=== PATIENT | male | born 1960 | race Caucasian/White ===

== ENCOUNTER 2025-01-13 01:43 | Emergency (ER) | payer OTHER, SELFPAY ==
[2025-01-13 01:45] VITALS: BP 173/76; PULSE 70; RESP 18; TEMP 36.8; O2SAT 98; BMI 18.7
--- NOTE | 2025-01-13 02:10 | RAD_ITS ---
PROCEDURE: HAND MIN 3 VIEWS 01/13/2025 REASON FOR EXAM: INJURY TECHNIQUE: Procedure Code: MASTER Modality: DX Procedure: HAND MIN 3 VIEWS COMPARISON: None FINDINGS: Bones: No definite acute fracture or dislocation. Joints: Preserved joint spaces. Soft tissues: Diffuse soft tissue swelling at the distal phalanx of the middle finger. Other: RAD/Hand Min 3 Views IMPRESSION: Soft tissue swelling at the distal phalanx of the middle finger with no acute o bvious fracture. Reading [facility]
--- NOTE | 2025-01-13 03:39 | EDS_ITS ---
HPI History of Present Illness Chief Complaint: Laceration Informant: patient Narrative Narrative: Patient is a 64-year-old male who is right-hand dominant and has past medical history of GERD. 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 He states the machine roller was still moving when it was not supposed to be and it caught the tip of his right middle finger and caused an injury. He states he took his glove off and noticed there was a laceration to the middle finger and was concerned there could be potential fracture or need for closure he was brought in for evaluation [facility] Medical History (Updated 01/13/25 @ 03:[address] Eugenio Sharma DO) GERD (gastroesophageal reflux disease) Allergy/AdvReac Type Severity Reaction Status Date / Time No Known Allergies Allergy Verified 01/13/25 01:45 Family History no significant family his Surgical History (Updated 01/13/25 @ 01:46 by Mick Paez) History of back surgery Hx of shoulder surgery Social History Smoking Status: Current every day smoker tobacco type: cigarettes ROS ROS ED Constitutional Constitutional ED: Denies chills or fever(s) ENT ENT ED: Denies sore throat Cardiovascular Cardiovascular: Denies chest pain Respiratory/Chest Respiratory/Chest: Denies cough or dyspnea Gastrointestinal Gastrointestinal: Denies abdominal pain, diarrhea, nausea or vomiting Musculoskeletal Musculoskeletal: Reports other Details: Positive right middle finger pain Integumentary Reports other Details: Positive laceration right middle finger Neurologic Neurologic: Denies headache(s), paresthesias or weakness Hematologic/Lymphatic Hematologic/Lymphatic: Denies easy bleeding or easy bruising EXAM Physical Exam Const Vital Signs: 01/13/25 01:45 Temperature 98.2 F Temperature Source Oral Pulse Rate 70 Respiratory Rate 18 Blood Pressure 173/76 H Blood Pressure Mean 108 Pulse Ox 98 Oxygen Delivery Method Room Air Positive well nourished and well developed General Appearance ED: well developed HEENT HEENT Narrative: Normocephalic atraumatic Eyes PERRL and EOMs intact bilaterally Neck supple Resp normal respiratory effort and clear to auscultation bilaterally Cardio regular rate and regular rhythm Extremity Extremity Narrative: Right upper extremity is neurovascularly intact; AIN/PIN are intact and normal Along the volar aspect of the right upper extremity at the DIP joint space of the right middle finger is a curvilinear 2.5 cm subcutaneous layer deep laceration with minimal ooze of blood and no retained foreign body. No nailbed involved. No subungual hematoma. No ligamentous or tendon injury noted. Remainder of the exam is normal Neuro oriented x3, CN's II-XII intact bilaterally and no sensory deficits noted Sensorium / Orientation: alert Motor Exam: strength 5/5 throughout Psych mental status grossly normal Skin Skin Narrative: Laceration to the volar aspect of the right middle finger as documented above MDM MDM MDM Narrative Medical decision making narrative: Patient arrived to the ER hypertensive but otherwise with stable vitals. Patient had a injury to his right middle finger and with concern for potential open fracture and x-ray was ordered. X-ray revealed no sign of fracture dislocation or retained foreign body. By physical exam there is no sign of arterial laceration or ligamentous or tendon rupture. Therefore there is no need for emergent orthopedic/hand consultation. The patient had his wound closed as documented below. Now the wound has been closed and there is no sign of open fracture or tendon laceration there is no need for further evaluation he is otherwise safe for discharge. Patient had the right middle finger cleaned with chlorhexidine. It was anesthetized with 8 mL of 2% lidocaine without epinephrine and digital block fashion. The wound was copiously irrigated with normal saline. Then thirteen 4-0 Ethilon sutures were placed in simple interrupted fashion. This brought the wound edges together well with good approximation. Patient tolerated procedure well without complication History & Record Review Discussion w/independent historian: Patient Radiography Diagnostic Testing: Clinical Impression(s) from Imaging Studies Hand X-Ray 01/13/25 02:10 IMPRESSION: Soft tissue swelling at the distal phalanx of the middle finger with no acute obvious fracture. Reading Location: [place] [id number] X-ray of the right hand as interpreted by the emergency medicine physician reveals no acute fracture dislocation or retained foreign body Discharge Plan Triage Chief Complaint: Laceration ED Provider: Eugenio Sharma Dx/Rx/DC Orders Clinical Impression: Laceration of right middle finger Instructions: ED Laceration, All Closures Primary Care Provider: Mango Antonio Referrals: [facility] [Provider Group] Mango Antonio MD [Primary Care Provider] - Activity Restrictions/Additional Instructions: Please follow-up with Workmen's Compensation or your family doctor or the ER in 7 to 10 days for suture removal. Please continue to wash the area with soap and water to prevent secondary infection and allow roughly 4 hours of air exposure today to help with healing Print Language: Welsh Disposition Disposition: Home, Self Care
[2025-01-13] MEDS: Lidocaine 2% (20 ml mdv) 20 ML Vial INFILT (03:57)
[2025-01-13 03:58] VITALS: BP 158/70; PULSE 72; RESP 18; TEMP 36.8; O2SAT 96
== END 2025-01-13 04:00 | disposition home or self-care (01) ==
PROVIDERS: Emergency Provider Emergency Medicine; PCP Family Medicine; Visit Provider Emergency Medicine
DX: S61.212A Laceration without foreign body of right middle finger without damage to nail, initial encounter (principal); W31.89XA Contact with other specified machinery, initial encounter; Y99.0 Civilian activity done for income or pay; K21.9 Gastro-esophageal reflux disease without esophagitis; F17.210 Nicotine dependence, cigarettes, uncomplicated
CPT/HCPCS: 12001; 73130; 99282

== ENCOUNTER 2025-01-17 15:55 | Emergency (ER) | payer OTHER, SELFPAY ==
[2025-01-17 15:56] VITALS: BP 141/75; PULSE 70; RESP 18; TEMP 36.3; O2SAT 97; BMI 18.9
--- OUTSIDE RECORDS SUMMARY | 2025-01-17 18:06 | XMS RPT_ITS | CCD ---
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 Name Role Phone Krishan Antonio Unavailable [phone] Ulises Griffith Unavailable Unavailable Ulises Griffith Unavailable Unavailable KIMANI MCDONALD, DR RILEY Attending Unavail able KIMANI MCDONALD, DR RILEY Consulting Unavail able KIMANI MCDONALD, DR RILEY Admitting Unavail able HOLDEN MCDONALD, FEI [place] [facility] Unavailab le Joann [phone], Gurinder [phone] Co nsulting Unavailable MARCELLA MCDONALD, STACY Akhtar Consulting Unavailabl e JESSICA FRAGA CRNA Consulting Unavail able HOLDEN MCDONALD, FEI [place] Consulting Unavailab le FurnUlises duran Unavailable Unavailable Unavailable Krishan Antonio Referring Unavailab le FurnessUlises Primary Care Krishan Vu Attending Unavailab le Wood, Ms. Stella Henry Attending Unav ailable Wood, Ms. Stella Henry Referring Unav ailable Ulises Griffith Primary Care AdalivaKrishan Fernandes Attending Unavailab le StenKrishan rincon Referring Unavailab le FurnessUlises Primary Care Unavai Krishan Arambula MD Primary Care Provider Krishan Antonio MD Unavailable KRISHAN ANTONIO Primary Care Unavailab le KRISHAN ANTONIO Referring Unavailab le DETRICHPATRICK Attending Unavailable STENCELKRISHAN Admitting Unavailab le DETRPATRICK RASCON Attending Unavailable STENKRISHAN RINCON Primary Care Unavailab Giovanny Rey Attending Unavailable Furness, Dr. Ulises Mills Primary Care Un available Furness, Dr. Ulises Mills Referring Un available Furness Ulises MCDONALD Primary Care Provider ULISES GRIFFITH Attending Unavailable NACHO, ULISES Jimenez Primary Care Unavailable ULISES GRIFFITH Attending Unavailable ULISES GRIFFITH Primary Care Unavailable Dr. Eugenio Sharma DO Emergency Provider Dr. Krishan Antonio MD Primary Care Provider Eugenio Sharma Attending Unavailable Krishan Antonio Primary Care Unavailable Medications Current Medications Medication Drug Class(es) Dates Sig (Normalized) Sig (Original) cephalexin 500 mg oral capsule (1 source) Cephalosporin Antibacterial Start: 02-17-2021 take 1 capsule by mouth four times daily Cephalexin 500 MG Oral Capsule TAKE 1 CAPSULE 4 TIMES DAILY UNTIL GONE. Quantity: 28 Refills: 2 Ordered: 17-Feb-2021 Krishan Antonio MD Start : 17-Feb-2021 Active Start: 02-17-2021 [facility] Cephalexin 500 MG Oral Capsule TAKE 1 CAPSULE 4 TIMES DAILY UNTIL GONE. Quantity: 28 Refills: 2 Ordered: 17-Feb-2021 Krishan Antonio MD Start : 17-Feb-2021 Active pantoprazole 40 mg delayed release oral tablet (16 sources) Proton Pump Inhibitor Start: 07-10-2023 End: 06-18-2025 take 1 tablet by mouth once daily pantoprazole (ProtoNix) 40 mg EC tablet Indications: Routine general medical examination at a health care facility Take 1 tablet (40 mg) by mouth once daily. 90 tablet 3 06/18/2024 06/18/2025 Active Start: 09-05-2019 take 1 tablet by [facility] once daily Pantoprazole Sodium 40 MG Oral Tablet Delayed Release TAKE 1 TABLET DAILY. Quantity: 90 Refills: 3 Ordered: 11-Aug-2021 Krishan Antonio MD Start : 05-Sep-2019 Active take 40 mg by mouth once daily P ANTOPRAZOLE SODIUM (PANTOPRAZOLE ORAL) Take 40 mg by mouth daily . 0 Active take 40 mg by mouth once daily P ANTOPRAZOLE SODIUM (PANTOPRAZOLE ORAL) Take 40 mg by mouth daily . Active sildenafil 100 mg oral tablet (14 sources) Phosphodiesterase 5 Inhibitor Start: 07-10-2023 End: 06-18-2025 take 1 tablet by mouth in the morning sildenafil (Viagra) 100 mg tablet Indications: Routine general medical examination at a health care facility Take 1 tablet (100 mg) by mouth early in the morning.. 90 tablet 3 06/18/2024 06/18/2025 Active Start: 08-07-2018 sildenafil ( AGRA) 100 MG tablet Completed/Discontinued Medications Medication Drug Class(es) Dates Sig (Normalized) Sig (Original) dexamethasone (DECADRON) 1 mL, triamcinolone acetonide (KENALOG-40) 40 mg/mL 1 mL (2 sources) Start: 06-17-2018 End: 06-17-2018 dexamethasone (DECADRON) 1 mL, triamcinolone acetonide (KENALOG-40) 40 mg/mL 1 mL Start: 06-15-2018 End: 06-17-2018 dexamethasone (DECADRON) 1 m L, triamcinolone acetonide (KENALOG-40) 40 mg/mL 1 mL 24 hr diclofenac sodium 100 mg extended release oral tablet (2 sources) Nonsteroidal Anti-inflammatory Drug Start: 08-26-2021 End: 10-20-2021 take 1 tablet by mouth once daily Diclofenac Sodium ER 100 MG Oral Tablet Extended Release 24 Hour Take 1 tablet daily Quantity: 30 Refills: 11 Ordered: 26-Aug-2021 Krishan Antonio MD Start : 26-Aug-2021 End : 20-Oct-2021 Complete gabapentin 600 mg oral tablet (1 source) Anti-epileptic Agent End: 02-19-2017 take 1 tablet by mouth three times daily gabapentin (NEURONTIN) 600 MG tablet Take 600 mg by mouth 3 (three) times a day Takes 1 or 2 tabs TID . 02/19/2017 Discontinued rizatriptan 10 mg oral tablet (2 sources) Serotonin-1b and Serotonin-1d Receptor Agonist Start: 10-20-2021 take 1 tablet by mouth every two hours as needed, then take 3 tablets by mouth every twenty-four hours as needed Rizatriptan Benzoate 10 MG Oral Tablet TAKE 1 TABLET AT ONSET OF HEADACHE. MAY REPEAT EVERY 2 HOURS NEEDED. MAXIMUM 3 TABLETS IN 24 HOURS. Quantity: 9 Refills: 3 Ordered: 20-Oct-2021 Stella George Start : 20-Oct-2021 Active triamcinolone acetonide 40 mg/ml injectable suspension (4 sources) Corticosteroid Start: 02-19-2017 End: 02-19-2017 triamcinolone acetonide (KENALOG-40) injection 20 mg Start: 02-19-2017 End: 02-19-2017 triamcinolone acetonide (JAM ALOG-40) injection 20 mg Start: 02-19-2017 End: 02-19-2017 triamcinolone acetonide (JAM ALOG-40) injection 20 mg 20 mg, Intra-articular, Once, 02/19/17 at 1900, For 1 dose, [facility] 5993-2853-33 Given 02/19/2017 18:11 EDT 20 mg Start: 02-19-2017 End: 02-19-2017 triamcinolone acetonide (JAM ALOG-40) injection 20 mg 20 mg, Intra-articular, Once, 02/19/17 at 1900, For 1 dose, [facility] 5490-7341-08 Given 02/19/2017 18:10 EDT 20 mg 24 hr verapamil hydrochloride 240 mg extended release oral capsule (5 sources) Calcium Channel Pati Start: 10-20-2021 take 1 capsule by mouth once daily in the morning Verapamil HCl ER 240 MG Oral Capsule Extended Release 24 Hour TAKE 1 CAPSULE EVERY MORNING DAILY. Quantity: 30 Refills: 3 Ordered: 20-Oct-2021 Stella George Start : 20-Oct-2021 Active Start: 08-26-2021 take 1 tablet by mehran th once daily Verapamil HCl ER 180 MG Oral Tablet Extended Release TAKE 1 TABLET DAILY DIRECTED. Quantity: 30 Refills: 11 Ordered: 26-Aug-2021 Krishan Antonio MD Start : 26-Aug-2021 Active Problems Active Problems Problem Classification Problem Date Documented Date Episodic/Chronic Esophageal disorders (7 sources) Gastroesophageal reflux disease; Translations: [Esophageal reflux] Onset: 07-10-2023 07-10-2023 Chronic Headache; including migraine (4 sources) Headache; Translations: [Headache] Episodic Open wounds of extremities (1 source) Laceration of right middle finger; Translations: [Laceration without foreign body of right middle finger without damage to nail, initial encounter] 01-13-2025 Episodic Other connective tissue disease (3 sources) Impingement syndrome of left shoulder; Translations: [Impingement syndrome of left shoulder] Onset: 06-15-2018 06-15-2018 Episodic Other connective tissue disease (1 source) Full thickness rotator cuff tear; Translations: [Complete tear of left rotator cuff] Episodic Other male genital disorders (1 source) Impotence; Translations: [Erectile dysfunction] Chronic Other male genital disorders (6 sources) Male erectile dysfunction, unspecified; Translations: [Erectile dysfunction] Onset: 07-10-2023 07-10-2023 Chronic Other non-traumatic joint disorders (12 sources) Shoulder pain; Translations: [Pain in joint, shoulder region] Episodic Other skin disorders (5 sources) Epidermoid cyst of skin; Translations: [Sebaceous cyst] Episodic Other skin disorders (2 sources) Lesion of scalp; Translations: [Unspecified disorder of skin and subcutaneous tissue] Episodic Other skin disorders (4 sources) Cyst of scalp; Translations: [Follicular cyst of the skin and subcutaneous tissue, unspecified] Onset: 05-10-2022 Episodic Other skin disorders (2 sources) Follicular cyst of the skin and subcutaneous tissue, unspecified; Translations: [Follicular cyst of the skin and subcutaneous tissue, unspecified] Onset: 05-10-2022 Episodic Residual codes; unclassified (1 source) Body mass index 20-24 - normal; Translations: [Body Mass Index between 19-24, adult] Episodic Spondylosis; intervertebral disc disorders; other back problems (14 sources) Prolapsed lumbar intervertebral disc; Translations: [Displacement of lumbar intervertebral disc without myelopathy] Onset: 02-18-2016 02-18-2016 Chronic Sprains and strains (2 sources) Strain of other muscles, fascia and tendons at shoulder and upper arm level, left arm, initial encounter; Translations: [STRN OTH MSC F TEND SHLDR UA LA INT] Onset: 11-04-2019 Episodic Unclassified (2 sources) Procedure Onset: 05-24-2022 Past or Other Problems Problem Classification Problem Date Documented Da te Episodic/Chronic Other connective tissue disease (1 source) Soft tissue lesion of shoulder region Episodic Other connective tissue disease (7 sources) Impingement syndrome of right shoulder; Translations: [Bilateral impingement syndrome of shoulders] Onset: 06-15-2018 09-05-2018 Episodic Other screening for suspected conditions (not mental disorders or infectious disease) (10 sources) Patient encounter status; Translations: [Special screening for malignant neoplasms of colon] Onset: 09-20-2021 Episodic Unclassified (1 source) Tear of right rotator cuff, unspecified tear extent Results Test Name Value Interpretation Reference Range Facility Emergency Department Summary on 01-13-2025 Emergency Department Summary [facility] Medical Records Department [address] [place] [address] Emergency Department Summary 01/13/25 MR#: [id number] Acct: [id number] Name: EDILBERTO HUMPHREYS Rep #: [id number] : 1960 64 From: Eugenio Sharma DO PCP: Dr. Krishan Antonio MD Status:REG ER Location: ED HPI History of Present Illness Chief Complaint: Laceration Informant: patient Narrative Narrative: Patient is a 64-year-old male who is right-hand dominant and has past medical history of GERD. 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 He states the machine roller was still moving when it was not supposed to be and it caught the tip of his right middle finger and caused an injury. He states he took his glove off and noticed there was a laceration to the middle finger and was concerned there could be potential fracture or need for closure he was brought in for evaluation [facility] Medical History (Updated 01/13/25 @ 03:[address] Eugenio Sharma DO) GERD (gastroesophageal reflux disease) Allergy/AdvReac Type Severity Reaction Status Date / Time No Known Allergies Allergy Verified 01/13/25 01:45 Family History no significant family his Surgical History (Updated 01/13/25 @ 01:46 by Mick Paez) History of back surgery Hx of shoulder surgery Social History Smoking Status: Current every day smoker tobacco type: cigarettes ROS ROS ED Constitutional Constitutional ED: Denies chills or fever(s) ENT ENT ED: Denies sore throat Cardiovascular Cardiovascular: Denies chest pain Respiratory/Chest Respiratory/Chest: Denies cough or dyspnea Gastrointestinal Gastrointestinal: Denies abdominal pain, diarrhea, nausea or vomiting Musculoskeletal Musculoskeletal: Reports other Details: Positive right middle finger pain Integumentary Reports other Details: Positive laceration right middle finger Neurologic Neurologic: Denies headache(s), paresthesias or weakness Hematologic/Lymphatic Hematologic/Lymphatic : Denies easy bleeding or easy bruising EXAM Physical Exam Const Vital Signs: 01/13/25 01:45 Temperature 98.2 F Temperature Source Oral Pulse Rate 70 Respiratory Rate 18 Blood Pressure 173/76 H Blood Pressure Mean 108 Pulse Ox 98 Oxygen Delivery Method Room Air Positive well nourished and well developed General Appearance ED: well developed HEENT HEENT Narrative: Normocephalic atraumatic Eyes PERRL and EOMs intact bilaterally Neck supple Resp normal respiratory effort and clear to auscultation bilaterally Cardio regular rate and regular rhythm Extremity Extremity Narrative: Right upper extremity is neurovascularly intact; AIN/PIN are intact and normal Along the volar aspect of the right upper extremity at the DIP joint space of the right middle finger is a curvilinear 2.5 cm subcutaneous layer deep laceration with minimal ooze of blood and no retained foreign body. No nailbed involved. No subungual hematoma. No ligamentous or tendon injury noted. Remainder of the exam is normal Neuro oriented x3, CN's II-XII intact bilaterally and no sensory deficits noted Sensorium / Orientation: alert Motor Exam: strength 5/5 throughout Psych mental status grossly normal Skin Skin Narrative: Laceration to the volar aspect of the right middle finger as documented above MDM MDM MDM Narrative Medical decision making narrative: Patient arrived to the ER hypertensive but otherwise with stable vitals. Patient had a injury to his right middle finger and with concern for potential open fracture and x-ray was ordered. X-ray revealed no sign of fracture dislocation or retained foreign body. By physical exam there is no sign of arterial laceration or ligamentous or tendon rupture. Therefore there is no need for emergent orthopedic/hand consultation. The patient had his wound closed as documented below. Now the wound has been closed and there is no sign of open fracture or tendon laceration there is no need for further evaluation he is otherwise safe for discharge. Patient had the right middle finger cleaned with chlorhexidine. It was anesthetized with 8 mL of 2% lidocaine without epinephrine and digital block fashion. The wound was copiously irrigated with normal saline. Then thirteen 4-0 Ethilon sutures were placed in simple interrupted fashion. This brought the wound edges together well with good approximation. Patient tolerated procedure well without complication History Record Review Discussion w/independent historian: Patient Radiography Diagnostic Testing: Clinical Impression(s) from Imaging Studies Hand X-Ray 01/13/25 02:10 IMPRESSION: Soft tissue swelling at the distal phalanx of the middle finger with no acute obvious fracture. (more content not included)... Normal [facility] Hand Min 3 Viewson 5 Hand Min 3 Views [facility] Imaging Services [address] [place] [address] Hand Min 3 Views MR#: [id number] Acct: [id number] Name: EDILBERTO HUMPHREYS Rep #: [id number] : 1960 M 64 From: Zeeshan kerr MD PCP: Dr. Krishan Antonio MD Status: REG ER Study: Hand Min 3 Views Date of Exam: 01/13/25 Exam# [id number] Ordering Dr: Eugenio Sharma DO PROCEDURE: HAND MIN 3 VIEWS 01/13/2025 REASON FOR EXAM: INJURY TECHNIQUE: Procedure Code: MASTER Modality: DX Procedure: HAND MIN 3 VIEWS COMPARISON: None FINDINGS: Bones: No definite acute fracture or dislocation. Joints: Preserved joint spaces. Soft tissues: Diffuse soft tissue swelling at the distal phalanx of the middle finger. Other: RAD/Hand Min 3 Views IMPRESSION: Soft tissue swelling at the distal phalanx of the middle finger with no acute obvious fracture. Reading Location: [place] [address] CC: Dr. Krishan Antonio MD; Eugenio Sharma DO Safety Attendant: Signed Normal [facility] Office Visit (Primary Care T xt/Forms)on 04-26-2022 Follow-up visit Diagnoses/Problems Assessed Epidermal cyst (706.2) (L72.0) Skin lesion of scalp (709.9) (L98.9) Body mass index (BMI) of 20.0 to 20.9 in adult (V85.1) (Z68.20) Orders Epidermal cyst General Surgery Referral Evaluation and Treatment Evaluate AND Treat cyst on right side of scalp Status: Hold For - Scheduling Requested for: [id number] Patient Discussion/Summary wound care for cryp reviewed prn fu if recurs refer for excision of cyst Chief Complaint CHECK SPOT ON RIGHT SIDE OF HEAD X 2 WKS. NO LONGER TAKING VERAPAMIL. WAS NOT HELPING History of Present Illness scalp lesion right side incresed vertex AK returned LN2 to vertex 20 sec x 2 cycles to 2 mm lesion which froze to 8 mm lesion with >2 mm margin Active Problems Problems Acute pain of left shoulder (719.41) (M25.512) Acute pain of right shoulder (719.41) (M25.511) Chronic nonintractable headache, unspecified headache type (784.0) (R51.9,G89.29) Epidermal cyst (706.2) (L72.0) Erectile dysfunction (607.84) (N52.9) GERD (gastroesophageal reflux disease) (530.81) (K21.9) Herniated nucleus pulposus, L3-4 (722.10) (M51.26) Screening for colon cancer (V76.51) (Z12.11) Skin lesion of scalp (709.9) (L98.9) Surgical History Problems History of Colonoscopy History of Lumbar discectomy Family History Mother Family history of diabetes mellitus (V18.0) (Z83.3) Family history of hypertension (V17.49) (Z82.49) Father No pertinent family history Brother Family history of gastroesophageal reflux disease (V18.59) (Z83.79) Family history of S/P CABG (coronary artery bypass graft) Social History Problems Consumes alcohol (V49.89) (Z78.9) Current smoker (305.1) (F17.200) Never chewed tobacco (V49.89) (Z78.9) No advance directives (V49.89) (Z78.9) Current Meds Medication NameInstruction Pantoprazole Sodium 40 MG Oral Tablet Delayed ReleaseTAKE 1 TABLET DAILY. Rizatriptan Benzoate 10 MG Oral TabletTAKE 1 TABLET AT ONSET OF HEADACHE. MAY REPEAT EVERY 2 HOURS NEEDED. MAXIMUM 3 TABLETS IN 24 HOURS. Sildenafil Citrate 100 MG Oral Tablettake 1 tablet by mouth once daily Verapamil HCl ER 180 MG Oral Tablet Extended ReleaseTAKE 1 TABLET DAILY DIRECTED. Verapamil HCl ER 240 MG Oral Capsule Extended Release 24 HourTAKE 1 CAPSULE EVERY MORNING DAILY. Allergies Medication No Known Drug Allergies Vitals Vital Signs Recorded: [id number] 07:58AM Heart Rate: 66 Systolic: 124 Diastolic: 76 Height: 6 ft 4.5 in Weight: 173 lb 1 oz BMI Calculated: 20.79 kg/m2 BSA Calculated: 2.09 Tobacco Use: a) Yes Patient encouraged to stop using tobacco products: Yes Falls Screening (Age 18+): a) No falls within the last year O2 Saturation: 99 Physical Exam 1 cm cyst on right parietal scalp and 2-8 mm AK vertex Signatures Electronically signed by : Krishan Antonio MD; Apr 26 2022 8:25AM EST (Author) Normal [employer] Tobacco Screening.on 022 Fall risk assessment a) No falls within the last year [employer] [facility] Work Phone: Tobacco use status [facility] a) Yes [employer] [facility] Work Phone: Tobacco Screening. Yes [employer] [facility] Work Phone: Office Visit (Primary Care T xt/Forms)on 10-20-2021 Follow-up visit Diagnoses/Problems Assessed Chronic nonintractable headache, unspecified headache type (784.0) (R51.9,G89.29) Skin lesion of scalp (709.9) (L98.9) Orders Chronic nonintractable headache, unspecified headache type Start: Rizatriptan Benzoate 10 MG Oral Tablet; TAKE 1 TABLET AT ONSET OF HEADACHE. MAY REPEAT EVERY 2 HOURS NEEDED. MAXIMUM 3 TABLETS IN 24 HOURS Start: Verapamil HCl ER 240 MG Oral Capsule Extended Release 24 Hour; TAKE 1 CAPSULE EVERY MORNING DAILY Provider Impressions Provider Impressions Free Text Note Form: Maxalt 10 mg by mouth at onset of headache may repeat in 2 hours. Do not take more than 3 pills in 24 hours. For any new medications that were prescribed today, the patient was educated about their indications for use, administration, frequency and potential side effects of the medication. Increase verapamil to 240 mg by mouth daily RTC as needed Time Code: 1. Preparation for patient's visit (reviewing chart, current medical record, outside health provider records, previous history, exam, test, procedure, and medications) 2. Eunj-fp-Uzdl encounter obtaining history from patient/family/caregi vers; performing evaluation and exam; ordering tests or procedures; referring and communicating with other health care providers; counseling and education of the patient/family/caregi vers; independently interpreting results (tests, labs, procedures, imaging) and communicating and explaining results to the patient/family/caregi vers 3. Coordination of care; preparing and printing discharge instructions and any educational material for the patient/family/caregi vers. Documenting clinical information into the electronic medical record 4. Reviewing OARRS as needed MDM: 1) complexity: more than 1 stable chronic condition addressed or 1 acute illness addressed. 2) Data: tests interpreted and/or ordered, took independent history or records reviewed. 3) Risk: moderate risk due to nature of medical conditions/comorbidit y or medications ordered or surgical or procedural referral Chief Complaint SPOT ON TOP OF HEAD X 1 MO, ALSO STILL HAVING RODRIGUES History of Present Illness Edilberto comes to the office today to check a spot on top of head x1MO. only tender when he picks at it. Denies bleeding or drainage from the lesion. Mildly itchy. He will pick at it and it goes away then will return later. History of sun exposure in his younger years. chronic RODRIGUES's; previously seen per neurology. RODRIGUES better for several yrs then gradually returned gurmeet. noting them in morning hrs. + scotomas. RODRIGUES presentation the same as they have been for years. Complains of morning headache to the top /occipital region of the head and lasts all day. He is able to work through his headaches. He has no history of CV disease. + Mother with migraines. Denies nausea, vomiting, dizziness, or lightheadedness. Relieving factors: Sleep. aggravating factors: Coughing or sneezing. Headaches sometimes improved with caffeine and ibuprofen use. Review of Systems Constitutional: no fever and no chills. Eyes: no eyesight problems . + Visual scotomas. Neurological: headache, but no dizziness, no fainting and no speech difficulty. Psychiatric: no feelings of anxiety. Active Problems Problems Acute pain of left shoulder (719.41) (M25.512) Acute pain of right shoulder (719.41) (M25.511) Chronic nonintractable headache, unspecified headache type (784.0) (R51.9,G89.29) Epidermal cyst (706.2) (L72.0) Erectile dysfunction (607.84) (N52.9) GERD (gastroesophageal reflux disease) (530.81) (K21.9) Herniated nucleus pulposus, L3-4 (722.10) (M51.26) Screening for colon cancer (V76.51) (Z12.11) Surgical History Problems History of Colonoscopy History of Lumbar discectomy Family History Mother Family history of diabetes mellitus (V18.0) (Z83.3) Family history of hypertension (V17.49) (Z82.49) Father No pertinent family history Brother Family history of gastroesophageal reflux disease (V18.59) (Z83.79) Family history of S/P CABG (coronary artery bypass graft) Social History Problems Consumes alcohol (V49.89) (Z72.89) Current smoker (305.1) (F17.200) Never chewed tobacco (V49.89) (Z78.9) No advance directives (V49.89) (Z78.9) Current Meds Medication NameInstruction Pantoprazole Sodium 40 MG Oral Tablet Delayed ReleaseTAKE 1 TABLET DAILY. Sildenafil Citrate 100 MG Oral Tablettake 1 tablet by mouth once daily Verapamil HCl ER 180 MG Oral Tablet Extended ReleaseTAKE 1 TABLET DAILY DIRECTED. Allergies Medication No Known Drug Allergies Vitals Vital Signs Recorded: 20Oct2021 09:22AM Heart Rate: 60 Systolic: 162 Diastolic: 86 Height: 6 ft 4.5 in Weight: 169 lb 5 oz BMI Calculated: 20.34 kg/m2 BSA Calculated: 2.07 Tobacco Use: a) Yes Patient encouraged to stop using tobacco products: Yes Fall Screening: a) No falls within the last year O2 Saturation: 98 Physical Exam General: Alert and oriented. Ambulation statu (more content not included)... Normal [facility] Tobacco Screening.on 022 Fall risk assessment a) No falls within the last year [employer] [facility] Work Phone: Tobacco use status [facility] a) Yes [employer] [facility] Work Phone: Tobacco Screening. Yes [employer] [facility] [facility] Work Phone: Colonoscopyon 09-20-2021 Colonoscopy PATIENTNAME Patient Name: Edilberto Humphreys EXAMDATE Procedure Date: 09/20/2021 9:35 AM PATIENTID PATIENTACCOUNTNUM PATIENTDOB Date of : 1960 ADMITTYPE Admit Type: Outpatient PATIENTROOM Site: [facility] RM 1 ETHNICITY Ethnicity: Not or RACE Race: White PROVDR Attending MD: Giovanny Durham DO ENDOPROCEDURENREYNALDO Procedure: Colonoscopy INDICATION Indications: Screening for colorectal malignant neoplasm PRIMARYPROVIDER Providers: Giovanny Durham DO (Doctor), Damaris Weston RN (Nurse), Bertha Anderson RN (Nurse) EDREFPROVIDER Referring: Ulises Griffith MD CURRENT_MEDS Medicines: Midazolam 10 mg IV, Meperidine 50 mg IV, Diphenhydramine 50 mg IV COMPLIC Complications: No immediate complications. ENDOPROCEDURETEXT Procedure: Pre-Anesthesia Assessment: - Prior to the procedure, a History and Physical was performed, and patient medications and allergies were reviewed. The patient is competent. The risks and benefits of the procedure and the sedation options and risks were discussed with the patient. All questions were answered and informed consent was obtained. Patient identification and proposed procedure were verified by the physician in the pre-procedure area. Mental Status Examination: alert and oriented. Airway Examination: normal oropharyngeal airway and neck mobility. Respiratory Examination: clear to auscultation. CV Examination: normal. Prophylactic Antibiotics: The patient does not require prophylactic antibiotics. Prior Anticoagulants: The patient has taken no anticoagulant or antiplatelet agents. ASA Grade Assessment: II - A patient with mild systemic disease. After reviewing the risks and benefits, the patient was deemed in satisfactory condition to undergo the procedure. The anesthesia plan was to use moderate sedation / analgesia (conscious sedation). Immediately prior to administration of medications, the patient was re-assessed for adequacy to receive sedatives. The heart rate, respiratory rate, oxygen saturations, blood pressure, adequacy of pulmonary ventilation, and response to care were monitored throughout the procedure. The physical status of the patient was re-assessed after the procedure. After I obtained informed consent, the scope was passed under direct vision. Throughout the procedure, the patient's blood pressure, pulse, and oxygen saturations were monitored continuously. The pediatric colonoscope was introduced through the anus and advanced to the terminal ileum, with identification of the appendiceal orifice and IC valve. The colonoscopy was performed without difficulty. The patient tolerated the procedure well. The quality of the bowel preparation was excellent. The terminal ileum, ileocecal valve, appendiceal orifice, and rectum were photographed. FINDING Findings: The perianal and digital rectal examinations were normal. Pertinent negatives include normal sphincter tone and no palpable rectal lesions. The terminal ileum appeared normal. The entire examined colon appeared normal on direct and retroflexion views. SEDATION Moderate Sedation: Moderate (conscious) sedation was administered by the endoscopy nurse and supervised by the endoscopist. The following parameters were monitored: oxygen saturation, heart rate, blood pressure, and response to care. Total physician intraservice time was 22 minutes. EBL Estimated Blood Loss: Estimated blood loss: none. IMPRESS Impression: - The examined portion of the ileum was normal. - The entire examined colon is normal on direct and retroflexion views. - No specimens collected. ENDORECOMMENDATION Recommendation: - Patient has a contact number available for emergencies. The signs and symptoms of potential delayed complications were discussed with the patient. Return to normal activities tomorrow. Written discharge instructions were provided to the patient. - Resume previous diet. - Continue present medications. - Repeat colonoscopy in 10 years for screening purposes. - Return to referring physician as previously scheduled. CPT_CODES Procedure Code(s): --- Professional --- 59097, Colonoscopy, flexible; diagnostic, including collection of specimen(s) by brushing or washing, when performed (separate procedure) G0500, Moderate sedation services provided by the same physician or other qualified health director of career services performing a gastrointestinal endoscopic service that sedation supports, requiring the presence of an independent trained observer to assist in the monitoring of the patient's level of consciousness and physiological status; initial 15 minutes of intra-service time; patient age 5 years or older (additional time may be reported with 17814, as appropriate) ICD_CODES Diagnosis Code(s): --- Professional --- Z12.11, Encounter (more content not included)... Normal [facility] No Panel Informationon 09-20 [email or web address] [email or web address] [facility] Work Phone: Office Visit (Primary Care T xt/Forms)on 08-11-2021 Follow-up visit Diagnoses/Problems Assessed Screening for colon cancer (V76.51) (Z12.11) Chronic nonintractable headache, unspecified headache type (784.0) (R51.9,G89.29) Orders Erectile dysfunction Renew: Sildenafil Citrate 100 MG Oral Tablet; take 1 tablet by mouth once daily GERD (gastroesophageal reflux disease) Renew: Pantoprazole Sodium 40 MG Oral Tablet Delayed Release; TAKE 1 TABLET DAILY Screening for colon cancer Gastroenterology Referral Evaluation and Treatment Evaluate AND Treat Status: Hold For - Scheduling,Retrospect chiqui By Protocol Authorization Requested for: 11Aug2021 Unlinked Temporarily Stop: Influenza, seasonal, injectable Patient Discussion/Summary will revew old recs before eval and tx This patient encounter is quite complex due to the seriousness. High-level decision making was required to formulate the differential diagnosis, assessment, and plan. 1 1 Amended By: Krishan Antonio; Aug 11 2021 3:00 PM ESTChief Complaint CONSTANT RODRIGUES X 2 MO History of Present Illness had rodrigues 4-5 yrs ago seeingf specialists , was on mega, then stopped all meds and was ok after a co weeks. for last 2 months ok at hs and when first up ans rodrigues begins and progressive over course of day and takes meds hat ct and mri scans at that time occipital, worsee woth cough or sneeze. ok in am, onset after up and hour. Review of Systems General-no fatigue weight to within 10 pounds ENT no problems with vision swallowing Cardiac no chest pains palpitations change in exercise tolerance or capacity Pulmonary no cough shortness of breath GI no heartburn or abdominal pain Musculoskeletal no joint pains Active Problems Problems Acute pain of left shoulder (719.41) (M25.512) Acute pain of right shoulder (719.41) (M25.511) Epidermal cyst (706.2) (L72.0) Erectile dysfunction (607.84) (N52.9) GERD (gastroesophageal reflux disease) (530.81) (K21.9) Herniated nucleus pulposus, L3-4 (722.10) (M51.26) Surgical History Problems History of Colonoscopy History of Lumbar discectomy Family History Mother Family history of diabetes mellitus (V18.0) (Z83.3) Family history of hypertension (V17.49) (Z82.49) Father No pertinent family history Brother Family history of gastroesophageal reflux disease (V18.59) (Z83.79) Family history of S/P CABG (coronary artery bypass graft) Social History Problems Consumes alcohol (V49.89) (Z72.89) Current smoker (305.1) (F17.200) Never chewed tobacco (V49.89) (Z78.9) No advance directives (V49.89) (Z78.9) Current Meds Medication NameInstruction Pantoprazole Sodium 40 MG Oral Tablet Delayed ReleaseTAKE 1 TABLET DAILY. Sildenafil Citrate 100 MG Oral Tablettake 1 tablet by mouth once daily Allergies Medication No Known Drug Allergies Vitals Vital Signs Recorded: 11Aug2021 02:22PM Heart Rate: 67 Systolic: 144 Diastolic: 78 Height: 6 ft 4.5 in Weight: 172 lb 2 oz BMI Calculated: 20.68 kg/m2 BSA Calculated: 2.09 Tobacco Use: a) Yes Patient encouraged to stop using tobacco products: Yes PHQ-2 #1. Over the last 2 weeks have you felt down, depressed or hopeless? (If yes, answer PHQ-9 below): No PHQ-2 #2. Over the last 2 weeks have you felt little interest or pleasure in doing things? (If yes, answer PHQ-9 below): No Fall Screening: a) No falls within the last year O2 Saturation: 98 Physical Exam General: Alert, No acute distress. Appears stated age Eye: Pupils are equal, round and reactive to light, Extraocular movements are intact, Normal conjunctiva. Neck: Supple, Non-tender, No carotid bruit, No jugular venous distention, No lymphadenopathy, No thyromegaly. Respiratory: Lungs are clear to auscultation, Respirations are non-labored, Breath sounds are equal. Cardiovascular: Normal rate, Regular rhythm, No murmur. Gastrointestinal: Soft, Non-tender, No organomegaly. No solid or pulsatile mass Integumentary: Warm, Dry. No concerning lesions on exposed areas Neurologic: Alert, Oriented. Gross and fine motor intact, CN 2-12 intact Psychiatric: Cooperative, Appropriate mood AND affect. Signatures Electronically signed by : Krishan Antonio MD; Aug 11 2021 2:59PM EST (Author) Electronically signed by : Krishan Antonio MD; Aug 11 2021 3:01PM EST (Author) Normal [facility] Tobacco Screening.on 022 Adult depression screening assessment No [facility] [facility] Work Phone: Fall risk assessment a) No falls within the last year [facility] [facility] Work Phone: Tobacco use status [facility] a) Yes [employer] [facility] Work Phone: Tobacco Screening. Yes [facility] Work Phone: Tobacco Screening.on 021 Fall risk assessment a) No falls within the last year [employer] [facility] Work Phone: Tobacco use status [facility] a) Yes [employer] [facility] Work Phone: Tobacco Screening. Yes [employer] [facility] Work Phone: MRI Shoulder w/o Contrast [place] 09-12-2018 MRI Shoulder w/o Contrast Left Exam Date/Time: 09/12/2018 10:10 EDT Reason for Exam: IMPINGEMENT SYNDROME OF LEFT SHOULDER M 75.42 Report STUDY: MRI of the left shoulder without intravenous contrast date09/12/2018. INDICATION: Shoulder pain. Assess for rotator cuff tear. Impingement syndrome. COMPARISON: None. ACCESSION NUMBER(S): [id number] ORDERING CLINICIAN: Miracle Whitaker TECHNIQUE: Multiplanar multisequence MRI of the left shoulder was performed without intra-articular or intravenous contrast. FINDINGS: MUSCLES AND TENDONS: There is a near complete retracted tear the supraspinatus tendon with some posterior most fibers likely still being intact with moderate tendinosis.The infraspinatus tendon is intact.The teres minor tendon is intact.There is moderate subscapularis tendinosis.The tendon of the long head of the biceps is intact and is seated within the bicipital groove distally.There is mild atrophy of the supraspinatus muscle.No mass is evident and the suprascapular or spinoglenoid notch or the quadrangular space. OSSEOUS STRUCTURES AND JOINTS: No displaced glenoid labral tear is evident. There is no significant degenerative change of the glenohumeral joint. There is mild degenerative change of the acromioclavicular joint. The acromion is type II without significant lateral downsloping. There is a small volume shoulder joint effusion. No fracture or dislocation is evident.Cystic changes are seen at the greater tubercle of the humerus. Bone marrow signal intensity is otherwise within normal limits. SOFT TISSUES: There is a small volume of fluid in the subacromial subdeltoid bursa. There is no significant volume of fluid in the subcoracoid bursa. Associated soft tissues of the shoulder are grossly unremarkable. IMPRESSION: 1. Near complete retracted tear of the supraspinatus tendon. Exam Date/Time: 09/12/2018 10:10 EDT Report 2. Subscapularis tendinosis. 3. Mild degenerative change of the shoulder. 4. Small volume joint effusion. FINAL REPORT Dictated: 09/12/2018 1:17 pm Elliot Davis MD Signed (Electronic Signature): 09/12/2018 1:17 pm Signed by: Elliot Davis MD Technologist: [facility] Miracle Whitaker CNP 06/17/2018 3:32 PM LG Jt Injection/Arthrocente sis: R subacromial bursa Performed by: Miracle Whitaker CNP Authorized by: Miracle Whitaker CNP CPT 32284 - Large Joint Arthrocentesis: Consent given by: Patient Time out: Immediately prior to the procedure a time out was called Physician or proceduralist has discussed critical or nonroutine steps, procedure duration and anticipated blood loss: Yes Supporting Documentation: Indications: Pain Procedure Details: Location: Shoulder Site: R subacromial bursa Prep: patient was prepped and draped in usual sterile fashion Needle size: 22 G Approach: Posterior Medications: 1 mL dexamethasone 4 mg/mL, 1 mL triamcinolone acetonide 40 mg/mL Anesthetic used: Bupivacaine 0.5% and Lidocaine 1% Anesthetic amount (mL): 4 Patient tolerance: Patient tolerated the procedure well with no immediate complications [facility] ORT LARGE JOINT ARTHROCEN TESISon 06-15-2018 Miracle Whitaker CNP 06/17/2018 3:32 PM LG Jt Injection/Arthrocente sis: L subacromial bursa Performed by: Miracle Whitaker CNP Authorized by: Miracle Whitaker CNP CPT 76159 - Large Joint Arthrocentesis: Consent given by: Patient Time out: Immediately prior to the procedure a time out was called Physician or proceduralist has discussed critical or nonroutine steps, procedure duration and anticipated blood loss: Yes Supporting Documentation: Indications: Pain Procedure Details: Location: Shoulder Site: L subacromial bursa Prep: patient was prepped and draped in usual sterile fashion Needle size: 22 G Approach: Posterior Medications: 1 mL dexamethasone 4 mg/mL, 1 mL triamcinolone acetonide 40 mg/mL Anesthetic used: Lidocaine 1% and Bupivacaine 0.5% Anesthetic amount (mL): 4 Patient tolerance: Patient tolerated the procedure well with no immediate complications [facility] XR Shoulder Left 2+ Views (S tandard)on 02-19-2017 INR Coag RelTime (Bld) X-ray of the left shoulder 3 views AP axillary Y scapular obtained due to pain reveals moderate AC joint arthrosis otherwise no abnormalities Invalid Interpretation Code FUJI SYNAPSE [facility] Vital Signs Date Time Vital Sign Value Performing Clinician Facility 01-13-2025 03:58-0400 Body temperature 98.3 [degF] Dr. Eugenio Sharma DO Work Phone: 3(469)125-266505 [place] [address] 01-13-2025 03:58-0400 Diastolic blood pressure 70 mm[Hg] Dr. Eugenio Sharma DO Work Phone: 4([phone])980-626705 [place] [address] 01-13-2025 03:58-0400 Heart rate 72 /min Dr. Eugenio Sharma DO Work Phone: 8(891)217-165005 [place] [address] 01-13-2025 03:58-0400 Respiratory rate 18 /min Dr. Eugenio Sharma DO Work Phone: 7(469)759-216005 [place] [address] 01-13-2025 03:58-0400 SaO2% (BldA) [Mass fraction] 96 % Dr. Eugenio Sharma DO Work Phone: 5(221)[phone] [place] [address] 01-13-2025 03:58-0400 Systolic blood pressure 158 mm[Hg] Dr. Eugenio Sharma DO Work Phone: 5(989)072-363205 [place] [address] 01-13-2025 01:45-0400 Body height 195.[address] Eugenio Sharma DO Work Phone: 0(593)957-597705 [place] [address] 01-13-2025 01:45-0400 Body mass index (BMI) [Ratio] 18.7 kg/m2 Dr. Eugenio Sharma DO Work Phone: 1(333)098-073805 [place] [address] 01-13-2025 01:45-0400 Body weight 71.[address] Eugenio Sharma DO Work Phone: [facility] 06-18-2024 08:06-0500 Body height 194.3 cm Ulises Griffith MD Work Phone: [facility] 06-18-2024 08:06-0500 Body mass index (BMI) [Ratio] 20.14 kg/m2 Ulises Griffith MD Work Phone: [facility] 06-18-2024 08:06-0500 Body weight 76.02 kg Ulises Griffith MD Work Phone: [facility] 06-18-2024 08:06-0500 Diastolic blood pressure 84 mm[Hg] Ulises Griffith MD Work Phone: [facility] 06-18-2024 08:06-0500 Heart rate 60 /min Ulises Griffith MD Work Phone: [facility] 06-18-2024 08:06-0500 SaO2% (BldA) [Mass fraction] 96 % Ulises Griffith MD Work Phone: [facility] 06-18-2024 08:06-0500 Systolic blood pressure 138 mm[Hg] Ulises Griffith MD Work Phone: [facility] 05-24-2022 14:03-0500 Body height 193 cm Patrick Nair MD Work Phone: [facility] 05-24-2022 14:03-0500 Body mass index (BMI) [Ratio] 20.69 kg/m2 Patrick Nair MD Work Phone: [facility] 05-24-2022 14:03-0500 Body weight 77.11 kg Patrick Nair MD Work Phone: [facility] 05-24-2022 14:03-0500 Diastolic blood pressure 76 mm[Hg] Patrick Nair MD Work Phone: [facility] 05-24-2022 14:03-0500 Heart rate 75 /min Patrick Nair MD Work Phone: [facility] 05-24-2022 14:03-0500 SaO2% (BldA) [Mass fraction] 99 % Patrick Nair MD Work Phone: [facility] 05-24-2022 14:03-0500 Systolic blood pressure 177 mm[Hg] Patrick Nair MD Work Phone: [facility] 05-10-2022 14:21-0500 Body height 193 cm Patrick Nair MD Work Phone: [facility] 05-10-2022 14:21-0500 Body mass index (BMI) [Ratio] 20.61 kg/m2 Patrick Nair MD Work Phone: [facility] 05-10-2022 14:21-0500 Body weight 76.79 kg Patrick Nair MD Work Phone: [facility] 05-10-2022 14:21-0500 Diastolic blood pressure 89 mm[Hg] Patrick Nair MD Work Phone: [facility] 05-10-2022 14:21-0500 Heart rate 68 /min Patrick Nair MD Work Phone: [facility] 05-10-2022 14:21-0500 SaO2% (BldA) [Mass fraction] 98 % Patrick Nair MD Work Phone: [facility] 05-10-2022 14:21-0500 Systolic blood pressure 160 mm[Hg] Patrick Nair MD Work Phone: [facility] 04-26-2022 07:58-0500 Body height 194.31 cm Ulises Griffith Work Phone: [employer] Work Phone: 04-26-2022 07:58-0500 Body mass index (BMI) [Ratio] 20.79 kg/m2 Ulises Griffith Work Phone: [facility] Work Phone: 04-26-2022 07:58-0500 Body surface area Derived from formula 2.09 m2 Ulises Griffith Work Phone: [employer] [employer] [facility] Work Phone: 04-26-2022 07:58-0500 Body weight 78.5 kg Ulises Griffith Work Phone: [facility] [employer] [facility] Work Phone: 04-26-2022 07:58-0500 Diastolic blood pressure 76 mm[Hg] Ulises Griffith Work Phone: [employer] [employer] [facility] Work Phone: 04-26-2022 07:58-0500 Heart rate 66 /min Ulises Griffith Work Phone: [employer] [facility] Work Phone: 04-26-2022 07:58-0500 SaO2% (BldA) [Mass fraction] 99 % Ulises Griffith Work Phone: [employer] [facility] Work Phone: 04-26-2022 07:58-0500 Systolic blood pressure 124 mm[Hg] Ulises Griffith Work Phone: [employer] [facility] Work Phone: 10-20-2021 09:22-0400 Body height 194.31 cm Ulises Griffith Work Phone: [employer] [facility] Work Phone: 10-20-2021 09:22-0400 Body mass index (BMI) [Ratio] 20.34 kg/m2 Ulises Griffith Work Phone: [employer] [facility] Work Phone: 10-20-2021 09:22-0400 Body surface area Derived from formula 2.07 m2 Ulises Griffith Work Phone: [employer] [facility] Work Phone: 10-20-2021 09:22-0400 Body weight 76.8 kg Ulises Griffith Work Phone: [facility] Work Phone: 10-20-2021 09:22-0400 Diastolic blood pressure 86 mm[Hg] Ulises Griffith Work Phone: [facility] Work Phone: 10-20-2021 09:22-0400 Heart rate 60 /min Ulises Griffith Work Phone: [facility] Work Phone: 10-20-2021 09:22-0400 SaO2% (BldA) [Mass fraction] 98 % Ulises Griffith Work Phone: [facility] Work Phone: 10-20-2021 09:22-0400 Systolic blood pressure 162 mm[Hg] Ulises Griffith Work Phone: [facility] Work Phone: 08-11-2021 14:22-0400 Body height 194.31 cm Ulises Griffith Work Phone: [facility] Work Phone: 08-11-2021 14:22-0400 Body mass index (BMI) [Ratio] 20.68 kg/m2 Ulises Griffith Work Phone: [facility] Work Phone: 08-11-2021 14:22-0400 Body surface area Derived from formula 2.09 m2 Ulises Griffith Work Phone: [facility] Work Phone: 08-11-2021 14:22-0400 Body weight 78.08 kg Ulises Griffith Work Phone: [facility] Work Phone: 08-11-2021 14:22-0400 Diastolic blood pressure 78 mm[Hg] Ulises Griffith Work Phone: [facility] Work Phone: 08-11-2021 14:22-0400 Heart rate 67 /min Ulises Griffith Work Phone: [facility] [employer] [facility] Work Phone: 08-11-2021 14:22-0400 SaO2% (BldA) [Mass fraction] 98 % Ulises Griffith Work Phone: [facility] Work Phone: 08-11-2021 14:22-0400 Systolic blood pressure 144 mm[Hg] Ulises Griffith Work Phone: [facility] [employer] [facility] Work Phone: 02-17-2021 09:16-0400 Body height 194.31 cm Ulises Griffith Work Phone: [facility] [employer] [facility] Work Phone: 02-17-2021 09:16-0400 Body mass index (BMI) [Ratio] 20.01 kg/m2 Ulises Griffith Work Phone: [facility] [employer] [facility] Work Phone: 02-17-2021 09:16-0400 Body surface area Derived from formula 2.06 m2 Ulises Griffith Work Phone: [facility] [employer] [facility] Work Phone: 02-17-2021 09:16-0400 Body temperature 97.3 [degF] Ulises Griffith Work Phone: [facility] [employer] [facility] Work Phone: 02-17-2021 09:16-0400 Body weight 75.55 kg Ulises Griffith Work Phone: [facility] [employer] [facility] Work Phone: 02-17-2021 09:16-0400 Diastolic blood pressure 72 mm[Hg] Ulises Griffith Work Phone: [employer] [facility] Work Phone: 02-17-2021 09:16-0400 Heart rate 75 /min Ulises Griffith Work Phone: [facility] [employer] [facility] Work Phone: 02-17-2021 09:16-0400 SaO2% (BldA) [Mass fraction] 97 % Ulises Griffith Work Phone: [facility] [employer] [facility] Work Phone: 02-17-2021 09:16-0400 Systolic blood pressure 138 mm[Hg] Ulises Griffith Work Phone: [employer] [facility] Work Phone: 09-05-2019 17:09-0400 BMI (Body Mass Index) 20.72 kg/m2 Ulises Griffith [employer] [facility] Work Phone: 09-05-2019 17:09-0400 Body Temperature 99 [degF] Ulises Griffith [employer] [facility] Work Phone: Comment on above: Method: Temporal 09-05-2019 17:09-0400 Body weight 78.22 kg Ulises Griffith [employer] [facility] Work Phone: 09-05-2019 17:09-0400 BP Diastolic 74 mm[Hg] Ulises Griffith [employer] [facility] [facility] Work Phone: Comment on above: Location: LUE; 09-05-2019 17:09-0400 BP Systolic 128 mm[Hg] Ulises Griffith [facility] [employer] [facility] Work Phone: Comment on above: Location: LUE; 09-05-2019 17:09-0400 BSA (Body Surface Area) 2.09 m2 Ulises Griffith [facility] [employer] [facility] Work Phone: 09-05-2019 17:09-0400 Height 194.31 cm Ulises Griffith [facility] Work Phone: 09-05-2019 17:09-0400 Pulse (Heart Rate) 82 /min Ulises Griffith -[facility] Work Phone: 09-05-2019 17:09-0400 Pulse Oximetry 98 % Ulises Smithrenee -[facility] Work Phone: 09-05-2018 12:57-0400 BMI (Body Mass Index) 19.48 kg/m2 [facility] 09-05-2018 12:57-0400 Height 193 cm [facility] 09-05-2018 12:57-0400 Weight 72.58 kg [facility] Encounters Encounter Date Encounter Type Care Provider Facility Start: 01-13-2025 End: 01-13-2025 Emergency department patient visit Dr. Eugenio Sharma DO Work Phone: -Emergency Department Work Phone: Start: 06-18-2024 End: 06-18-2024 Patient encounter status Ulises Griffith MD Work Phone: [facility] Start: 06-18-2024 End: 06-18-2024 Periodic preventive med est patient 40-64yrs Ulises Griffith MD Work Phone: [facility] Comment on above: Routine general medi gurwinder examination at a health care facility Start: 06-18-2024 End: 06-18-2024 ambulatory [facility] Ambulatory Start: 07-10-2023 End: 07-10-2023 ambulatory [facility] Start: 07-10-2023 End: 07-10-2023 Encounter for general adult medical examination without abnormal findings [facility] Start: 05-24-2022 End: 05-24-2022 ambulatory PATRICK NAIR [facility] Ambulato ry Start: 05-24-2022 End: 05-24-2022 Patient encounter procedure Patrick Nair MD Work Phone: [facility] Comment on above: Scalp cyst (Primary Dx) Start: 05-10-2022 End: 05-10-2022 ambulatory KRISHAN ANTONIO [facility] Ambulatory Start: 05-10-2022 End: 05-10-2022 Office outpatient new 20 minutes Krishan Antonio MD Work Phone: [facility] Comment on above: Scalp cyst (Primary Dx) Start: 04-26-2022 Office outpatient vi sit 15 minutes Ulises T Furness Work Phone: [facility] Work Phone: Start: 04-26-2022 ambulatory Krishan Antonio Facility:[id number] Start: 10-20-2021 Office outpatient vi sit 25 minutes Ulises T Furness Work Phone: [facility] Work Phone: Start: 10-20-2021 ambulatory Ms. Stella Parsons Facility:[id number] Start: 09-20-2021 End: 09-20-2021 ambulatory Giovanny Durham Facility:[id number] Start: 08-26-2021 AUDIT Ulises T Furn ess Work Phone: [facility] Work Phone: Start: 08-11-2021 Office outpatient vi sit 25 minutes Ulises T Furness Work Phone: [facility] Work Phone: Start: 08-11-2021 ambulatory Krishan Antonio Facility:[id number] Start: 02-17-2021 Office outpatient vi sit 15 minutes Ulises T Furness Work Phone: [facility] Work Phone: Start: 11-04-2019 End: 11-04-[address] OSVALDO HARMAN MD Facility:[facility] Start: 09-23-2018 End: 09-23-2018 Office outpatient visit 15 minutes Krysta Albert Work Phone: [facility] Comment on above: Impingement syndrome of left shoulder (Primary Dx); Complete tear of left rotator cuff Start: 09-06-2018 End: 09-06-2018 Documentation procedure Sonia Hudson [facility] Start: 09-05-2018 End: 09-05-2018 Documentation procedure Sonia Hudson [facility] Start: 09-05-2018 End: 09-05-2018 Office outpatient visit 15 minutes Miracle Whitaker Work Phone: [facility] Comment on above: Impingement syndrome of both shoulders (Primary Dx) Start: 06-17-2018 End: 06-17-2018 Patient encounter procedure Miracle Whitaker Work Phone: [facility] Comment on above: Impingement syndrome of left shoulder (Primary Dx) Start: 02-19-2017 End: 02-19-2017 Office outpatient visit 10 minutes Krysta Miguel Albert Work Phone: [facility] Comment on above: Bursitis/tendonitis, shoulder (Primary Dx);Tear of right rotator cuff, unspecified tear extent Procedures Date Procedure Procedure Detail Performing Clinician Start: 01-13-2025 Plain x-ray of hand Dr. Eugenio Sharma DO Work Phone: Start: 07-10-2023 Lipid 1996 panel - S justo or Plasma Ulises Griffith MD Work Phone: Start: 09-20-2021 End: 09-20-2021 Colonoscopy Ulises Griffith Work Phone: Start: 09-20-2021 Colonoscopy Ulises T Nacho Work Phone: Start: 06-17-2018 Arthrocentesis Miraclenima Quiñones Work Phone: Start: 06-16-2018 Arthrocentesis Miraclenima Quiñones Work Phone: Colonoscopy Ulises Griffith Excision of lumbar intervertebral disc Ulises Griffith Comment on above: L 3-4; Plan of Treatment Date Care Activity Detail Author Start: 2037 RSV High Risk: (Elde rly (60+) or Population) (1 - 1-dose 75+ series) RSV High Risk: (Elderly (60+) or Population) (1 - 1-dose 75+ series) [facility] Start: 09-21-2031 Screening for malign ant neoplasm of colon [facility] Start: 07-10-2028 Lipid panel Lipid Panel [facility] Start: 2025 DTaP/Tdap/Td Vaccine s (2 - Td or Tdap) DTaP/Tdap/Td Vaccines (2 - Td or Tdap) [facility] Start: 2025 Tetanus vaccination Tetanus: Every [address] [facility] Start: 06-19-2025 Yearly Adult Physical Yearly Adult P hysical [facility] Start: 06-19-2025 End: 06-19-2025 Patient encounter procedure 06/19/2025 8:00 AM EST Office Visit [place] [address] [id number] Ulises Griffith MD [facility] [address] [address] [facility] Start: 01-13-2025 [facility] Start: 01-13-2024 COVID-19 Vaccine ( season) COVID-19 Vaccine ( season) [facility] Start: 01-13-2024 Influenza vaccination Influenza Vacc ine (#1) [facility] Start: 06-07-2022 End: 06-07-2022 Follow-up encounter 06/07/2022 Follow-Up General Surgery Patrick Nair MD [address] [place] [address] [facility] Start: 05-24-2022 End: 05-24-2022 Patient encounter procedure 05/24/2022 Procedure visit General Surgery Patrick Nair MD [address] [place] [address] [facility] Start: 01-12-2022 Influenza vaccination Sequenti al Influenza Vaccine (#1) [facility] Start: 09-20-2021 COLON, Provider: Giovanny Durham, Status: Pen, Time: 1:00 PM COLON, Provider: Giovanny Durham, Status: Pen, Time: 1:00 PM [facility] Work Phone: Start: 06-20-2021 COVID-19 Vaccine (3 - Booster for Epifanio series) COVID-19 Vaccine (3 - Booster for Epifanio series) [facility] Start: 01-12-2019 Influenza vaccinatio n given SEQUENTIAL INFLUENZA VACCINE (Season Ended) [facility] Start: 01-12-2018 Influenza vaccinatio n given SEQUENTIAL INFLUENZA VACCINE (#1) [facility] Start: 01-12-2017 Influenza vaccination SEQUENTI AL INFLUENZA VACCINE (#1) [facility] Work Phone: Start: 2012 Administration of he rpes zoster vaccine Zoster Vaccines (1 of 2) [facility] Start: 2012 Screening for malign ant neoplasm of colon Flexible sigmoidoscopy [facility] Start: 2012 Zoster Vaccines (1 of 2) Zoste r Vaccines (1 of 2) [facility] Start: 1981 Pneumococcal vaccination Pneum ococcal Vaccine (1 of 2 - PCV) [facility] Start: 1980 Diabetes mellitus screening Diabetes Screening [facility] Start: 1980 Hepatitis C screening Hepatitis C Sc reening [facility] Start: 1977 HIV screening HIV Screening [facility] Start: 1974 Depression screening using PHQ-9 (Patient Health Questionnaire 9) score Depression Screening (PHQ-2/9) [facility] Start: 1968 Pneumococcal Vaccine : Ped or At-Risk (1 - PCV) Pneumococcal Vaccine: Ped or At-Risk (1 - PCV) [facility] Start: 1965 History and physical examination, annual for health maintenance Wellness Visit [facility] Start: 11-26-1963 MMR Vaccines (1 of 1 - Standard series) MMR Vaccines (1 of 1 - Standard series) [facility] Start: 1962 Hepatitis C antibody , confirmatory test HEPATITIS C SCREENING [facility] Start: 1962 HIV screening HIV Screening [facility] Start: 1962 Prostate specific antigen measurement PSA Level [facility] Start: 1962 Protein mass conc COLONOSCOPY [facility] Start: 1962 Screening for malign ant neoplasm of colon [facility] Start: 1962 HEPATITIS C SCREENING HEPATITIS C SC ANSON [facility] Work Phone: Start: 1962 Screening colonoscopy COLONOSCOPY [facility] Work Phone: Start: 1962 End: 1962 Tetanus vaccination TETANUS EVERY [address] [facility] Work Phone: End: 09-06-2019 MR Shoulder Left Without Contrast MR Shoulder Left Without Contrast Routine Impingement syndrome of both shoulders 1 Occurrences starting 09/05/2018 until 09/06/[address] [facility] Comment on above: 1 Occurrences starti ng 09/05/2018 until 09/06/2019 Patient Education ED Laceration, All Closures [facility] Work Phone: Procedure on tissue specimen Tissue Exam Pathology and Cytology Routine Scalp cyst Ordered: 05/24/[address] [facility] Work Phone: Comment on above: Ordered: 05/24/2022 Immunizations Immunization Date Immunization Notes Care Provider Qiana winkler 04-25-2021 Moderna COVID-19 Vaccine 100 MCG/0.5ML Intramuscular Suspension Ulises T Furness Work Phone: [facility] Work Phone: 10-07-2020 Epifanio COVID-19 Vaccine 0.5 ML Intramuscular Suspension Ulises T Furness Work Phone: [facility] Work Phone: 11-26-2015 tetanus toxoid, redu leanna diphtheria toxoid, and acellular pertussis vaccine, adsorbed Ulises T Furness Work Phone: [facility] Comment on above: Series: Payers Date Payer Category Payer Self-pay 2025 Unknown [id number] 2023 Managed Care (Private) [facility] [id number] 2023 Private Health Insurance [id number] 2021 Unknown 2015 Unknown [facility] HMO/ISACC/ ISACC PLUS/CHOICE PLUS xxxxxxxxx 2015-Present xxxxxxxxx [id number] 1962 Unknown [id number] 1962 Unknown [id number] 356 1962 Unknown [id number] 356 1962 Unknown [id number] 356 1962 Unknown [id number] 903 1962 Unknown [id number] 903 1962 Unknown [id number] 1069 1962 Unknown [id number]. 1244 1962 Unknown [id number] 1244 1959 Unknown [id number] Unknown [id number] Unknown [id number] 462 Social History Date Type Detail Facility Start: 02-19-2017 End: 01-13-2025 Tobacco smoking status NHIS Current every day smoker [facility] History of tobacco use Cigarette Smoker [facility] Work Phone: Start: 02-19-2017 End: 06-18-2024 Cigarettes smoked current (pack per day) - Reported [facility] Work Phone: Start: 1960 Sex Assigned At Not on file [facility] Work Phone: Start: 05-10-2022 End: 07-10-2023 Tobacco use and exposure Smokeless tobacco non-user [facility] Start: 05-10-2022 End: 06-18-2024 Alcohol intake Current drinker of alcohol (finding) [facility] Start: 04-30-2022 End: 06-18-2024 Exposure to SARS-CoV-2 (event) Not sure [facility] Start: 06-18-2024 Tobacco use panel [facility] Work Phone: Start: 1960 Sex Assigned At Male [facility] NEGATED: Highlighted row - - [facility] [facility] Work Phone: Functional Status Date Assessment Result Facility NEGATED: Highlighted row Functional performance Functional status health issues are not documented Disease [facility] Work Phone: Mental Status Date Assessment Result Facility NEGATED: Highlighted row Cognitive function [Interpretation] Cognitive status health issues are not documented [facility] Work Phone: Clinical Notes 02-15-2021 to 01-13-2025 Ulises Griffith MD - 06/18/2024 8:00 AM ESTAddendum Note - Lucia Schulte RN - 05/24/2022 2:53 PM ESTAddendum Note - Lucia Schulte RN - 05/24/2022 2:53 PM EST Note Date & Type Note Facility 01-13-2025 Discharge summary [facility] 01-13-2025 Radiology Diagnostic study note [facility] Imaging Services [address] [place] [id number] Hand Min 3 Views MR#: [id number] Acct: [id number] Name: EDILBERTO HUMPHREYS Rep #: [id number] : 1960 M 64 From: Maria Del Rosario Gill MD PCP: Dr. Krishan Antonio MD Status: RE G ER Study:Hand Min 3 Views Date of Exam: 07/08 Exam# [id number] Ordering Dr: Monika Sharma DO PROCEDURE: HAND MIN 3 VIEWS 01/13/2025 REASON FOR EXAM: INJURY TECHNIQUE: Procedure Code: MASTER Modality: DX Procedure: HAND MIN 3 VIEWS COMPARISON: None FINDINGS: Bones: No definite acute fracture or dislocation. Joints: Preserved joint spaces. Soft tissues: Diffuse soft tissue swelling at the distal phalanx of the middle finger. Other: RAD/Hand Min 3 Views IMPRESSION: Soft tissue swelling at the distal phalanx of the middle finger with no acute obvious fracture. Reading Location: [place] [address] CC: Dr. Krishan Antonio MD; Eugenio Sharma DO ~ Safety Attendant: Signed [facility] 06-18-2024 History of Present illness Narrative Subjective Patient ID: Edilberto Humphreys is a 63 y.o. male who presents for Follow-up and Annual Exam. HPI Overall doing well. No concerns. Last year's labs looked great including PSA and lipids. Burn stable on the medication. No breakthrough symptoms. Viagra helps as needed. Refill medicines no labs needed today. Colonoscopy 2021, 10 years. Review of Systems Constitutional: Negative for fatigue. HENT: Negative for hearing loss. Eyes: Negative for visual disturbance. Respiratory: Negative for cough and shortness of breath. Cardiovascular: Negative for chest pain and palpitations. Gastrointestinal: Negative for abdominal pain, blood in stool and constipation. Genitourinary: Negative for difficulty urinating and hematuria. Skin: Negative for rash. Neurological: Negative for headaches. Psychiatric/Behavioral: Negative for sleep disturbance. The patient is not nervous/anxious. Objective BP 138/84 Pulse 60 Ht 1.943 m (6' 4.5) Wt 76 kg (167 lb 9.6 oz) SpO2 96% BMI 20.14 kg/m Physical Exam Constitutional: Appearance: Normal appearance. HENT: Head: Normocephalic and atraumatic. Cardiovascular: Rate and Rhythm: Normal rate and regular rhythm. Heart sounds: Normal heart sounds. Pulmonary: Effort: Pulmonary effort is normal. Breath sounds: Normal breath sounds. Skin: General: Skin is warm and dry. Neurological: General: No focal deficit present. Mental Status: He is alert and oriented to person, place, and time. Psychiatric: Mood and Affect: Mood normal. Behavior: Behavior normal. Thought Content: Thought content normal. Judgment: Judgment normal. Assessment/Plan Problem List Items Addressed This Visit None Visit Diagnoses Codes Routine general medical examination at a health care facility Z00.00 Relevant Medications pantoprazole (ProtoNix) 40 mg EC tablet sildenafil (Viagra) 100 mg tablet documented in this encounter [facility] Work Phone: 05-24-2022 Note Addended by: LUCIA SCHULTE on: 05/24/2022 02:53 PM Modules accepted: Orders [facility] 05-24-2022 Miscellaneous Notes Addended by: LUCIA SCHULTE on: 05/24/2022 02:53 PM Modules accepted: Orders documented in this encounter [facility] 05-24-2022 History of Present illness Narrative [facility] PATIENT: Edilberto Humphreys DATE / TIME: 05/24/22 2:35 PM POS: Office AGE: 61 y.o. : 1960 RACE: [1] SEX: male PCP: Krishan Antonio MD REFERRAL: No ref. provider found [x] TIME OUT DONE [x] INFORMED CONSENT OBTAINED PRE-OP DIAGNOSIS: Inflamed previously draining right scalp cyst patient requests excision POST-OP DIAGNOSIS: Same-lesion measures 1.5 cm PROCEDURE: Excision of inflamed irritated right scalp cyst measuring 1.5 cm SURGEON: Dr Nair ANESTHESIA: 1% lidocaine without epinephrine SPECIMENS / FINDINGS: Patient was brought to the procedure room in our office and placed on the procedure room table in the supine position with his head turned to the left. I prepped and then draped the right scalp at the anglican region. 1% lidocaine without epinephrine due to its lack of availability was used for local anesthesia. Once good skin blanching was noted a #15 scalpel blade was used to make a circumferential excision surrounding the raised erythematous area. The long axis measured 1.5 cm. The specimen was excised sharply was handed from the operative field for definitive pathologic examination. I measured the defect and indeed it was 1.5 cm in size. I then closed it with a running 3-0 nylon. EBL: 5 to 10 mL COMPLICATIONS: None FOLLOW-UP: 2-week documented in this encounter [facility] 05-10-2022 History of Present illness Narrative [facility] [place] PATIENT: Edilberto Humphreys DATE / TIME: 05/10/22 2:44 PM POS: Office AGE: 61 y.o. : 1960 RACE: [1] SEX: male PCP: Krishan Antonio MD REFERRAL: Krishan Antonio,* TOS: 1. Scalp cyst ASSESSMENT: Enlarging draining scalp cyst to right anglican which is symptomatic. We have discussed management options today. I have offered him a chance to have it surgically excised in our minor procedure room in the office and he concurs PLAN: Get a 30-minute appointment to get the cyst excised in her office at a future date SUBJECTIVE: Patient states he had a longstanding lump on his right anglican/scalp region which enlarge suddenly and began to drain. He states when enlarged suddenly it was quite painful. He states that it popped and his 's been squeezing cottage cheese stuff out of it OBJECTIVE: BP (!) 160/89 Pulse 68 Ht 6' 4 Wt 76.8 kg (169 lb 4.8 oz) SpO2 98% BMI 20.61 kg/m There is a definite palpable lesion which according the patient is markedly smaller than it was previously. It feels like a classic pilar cyst. Laboratory and Additional Data Reviewed: Laboratory 05/10/22 2:44 PM Microbiology 05/10/22 2:44 PM Radiology 05/10/22 2:44 PM Medications 05/10/22 2:44 PM Lab Results Component Value Date WBC 9.21 02/14/2016 HGB 17.1 02/14/2016 HCT 50.4 02/14/2016 MCV 95.1 02/14/2016 PLT 256 02/14/2016 Lab Results Component Value Date GLUCOSE 106 (H) 02/14/2016 No orders to display REVIEW OF SYSTEMS Pertinent positives and negatives are listed in HPI, PMSH, SH, ALL above and in Details below. See scanned patient ROS questionnaire for specific details The following systems were reviewed: [x] Const (fevers, chills, wt. loss, fatigue) [x] CV (HTN, CP, STONE, edema, DVT) [x] Resp (SOB, pleurisy, asthma, apnea) [x] GI (N, V, D, C, M, abd pain, appetite) [x] Musc (back pain, joint stiffness, gout) [x] Neuro (seizures, syncope, paralysis) [x] Psych (depression, anxiety) [x] Endo (hot/cold intol, polyuria[DM]) [x] Hem/Lymph (Anemia, LA, bleeding) [x] Allerg/Immun (seasonal, immuniz) [x] Eyes (diplopia, cataracts) [x] ENT/mouth (dysphagia, epistaxis) [x] (dysuria, hematuria) [x] Skin/Breast (moles, rash, lumps, nipple changes) Details: Patient's Medications New Prescriptions No medications on file Previous Medications PANTOPRAZOLE SODIUM (PANTOPRAZOLE ORAL) Take 40 mg by mouth daily . SILDENAFIL (VIAGRA) 100 MG TABLET Modified Medications No medications on file Discontinued Medications No medications on file documented in this encounter [facility] 10-20-2021 History of Present illness Narrative Edilberto comes to the office today to check a spot on top of head x1MO. only tender when he picks at it. Denies bleeding or drainage from the lesion. Mildly itchy. He will pick at it and it goes away then will return later. History of sun exposure in his younger years.chronic RODRIGUES's; previously seen per neurology. RODRIGUES better for several yrs then gradually returned gurmeet. noting them in morning hrs. + scotomas. RODRIGUES presentation the same as they have been for years. Complains of morning headache to the top /occipital region of the head and lasts all day. He is able to work through his headaches. He has no history of CV disease. + Mother with migraines. Denies nausea, vomiting, dizziness, or lightheadedness. Relieving factors: Sleep. aggravating factors: Coughing or sneezing. Headaches sometimes improved with caffeine and ibuprofen use. [facility] [facility] Work Phone: 08-11-2021 History of Present illness Narrative had rodrigues 4-5 yrs ago seeingf specialists , was on mega, then stopped all meds and was ok after a co weeks.for last 2 months ok at hs and when first up ans rodrigues begins and progressive over course of day and takes medshat ct and mri scans at that timeoccipital, worsee woth cough or sneeze. ok in am, onset after up and hour. [facility] Work Phone: 02-15-2021 History of Present illness Narrative 2 days ago noted lump develop in the right submandibular region. No fever chills no systemic symptoms. Tender to palpation. No known injury. [facility] Work Phone: Discharge summary Note Date/Time January 13, 2025 3:49am [facility] Medical Records Department [address] [place] [address] Emergency Department Summary 01/13/25 MR#: [id number] Acct: [id number] Name: EDILBERTO HUMPHREYS Rep #:[id number] : 1960 64 From: Eugenio Sharma DO PCP: Dr. Krishan Antonio MD Status:RE G ER Location: ED HPI History of Present Illness Chief Complaint: Laceration Informant: patient Narrative Narrative: Patient is a 64-year-old male who is right-hand dominant and has past medical history of GERD. 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 He states the machine roller was still moving when it was not supposed to be and it caught the tip of his right middle finger and caused an injury. He states he took his glove off and noticed there was a laceration to the middle finger and was concerned there could be potential fracture or need for closure he was brought in for evaluation [facility] Medical History (Updated 01/13/25 @ 03:[address] Eugenio Sharma DO) GERD (gastroesophageal reflux disease) Allergy/AdvReac Type Severity Reaction Status Date / Time No Known Allergies Allergy Verified 01/13/25 01:45 Family History no significant family his Surgical History (Updated 01/13/25 @ 01:46 by Mick Paez) History of back surgery Hx of shoulder surgery Social History Smoking Status: Current every day smoker tobacco type: cigarettes ROS ROS ED Constitutional Constitutional ED: Denies chills or fever(s) ENT ENT ED: Denies sore throat Cardiovascular Cardiovascular: Denies chest pain Respiratory/Chest Respiratory/Chest: Denies cough or dyspnea Gastrointestinal Gastrointestinal: Denies abdominal pain, diarrhea, nausea or vomiting Musculoskeletal Musculoskeletal: Reports other Details: Positive right middle finger pain Integumentary Reports other Details: Positive laceration right middle finger Neurologic Neurologic: Denies headache(s), paresthesias or weakness Hematologic/Lymphatic Hematologic/Lymphatic: Denies easy bleeding or easy bruising EXAM Physical Exam Const Vital Signs: 01/13/25 01:45 Temperature 98.2 F Temperature Source Oral Pulse Rate 70 Respiratory Rate 18 Blood Pressure 173/76 H Blood Pressure Mean 108 Pulse Ox 98 Oxygen Delivery Method Room Air Positive well nourished and well developed General Appearance ED: well developed HEENT HEENT Narrative: Normocephalic atraumatic Eyes PERRL and EOMs intact bilaterally Neck supple Resp normal respiratory effort and clear to auscultation bilaterally Cardio regular rate and regular rhythm Extremity Extremity Narrative: Right upper extremity is neurovascularly intact; AIN/PIN are intact and normal Along the volar aspect of the right upper extremity at the DIP joint space of the right middle finger is a curvilinear 2.5 cm subcutaneous layer deep laceration with minimal ooze of blood and no retained foreign body. No nailbed involved. No subungual hematoma. No ligamentous or tendon injury noted. Remainder of the exam is normal Neuro oriented x3, CN's II-XII intact bilaterally and no sensory deficits noted Sensorium / Orientation: alert Motor Exam: strength 5/5 throughout Psych mental status grossly normal Skin Skin Narrative: Laceration to the volar aspect of the right middle finger as documented above MDM MDM MDM Narrative Medical decision making narrative: Patient arrived to the ER hypertensive but otherwise with stable vitals. Patient had a injury to his right middle finger and with concern for potential open fracture and x-ray was ordered. X-ray revealed no sign of fracture dislocation or retained foreign body. By physical exam there is no sign of arterial laceration or ligamentous or tendon rupture. Therefore there is no need for emergent orthopedic/hand consultation. The patient had his wound closed as documented below. Now the wound has been closed and there is no sign of open fracture or tendon laceration there is no need for further evaluation heis otherwise safe for discharge. Patient had the right middle finger cleaned with chlorhexidine. It was anesthetized with 8 mL of 2% lidocaine without epinephrine and digital block fashion. The wound was copiously irrigated with normal saline. Then thirteen 4-0 Ethilon sutures were placed in simple interrupted fashion. This brought thewound edges together well with good approximation. Patient tolerated procedure well without complication History & Record Review Discussion w/independent historian: Patient Radiography Diagnostic Testing: Clinical Impression(s) from Imaging Studies Hand X-Ray 01/13/25 02:10 IMPRESSION: Soft tissue swelling at the distal phalanx of the middle finger with no acute obvious fracture. Reading Location: [place] [address] X-ray of the right hand as interpreted by the emergency medicine physician reveals no acute fracture dislocation or retained foreign body Discharge Plan Triage Chief Complaint: Laceration ED Provider: Eugenio Sharma Dx/Rx/DC Orders Clinical Impression: Laceration of right middle finger Instructions: ED Laceration, All Closures Primary Care Provider: Krishan Antonio Referrals: [facility] [Provider Group] Krishan Antonio MD [Primary Care Provider] - Activity Restrictions/Additional Instructions: Please follow-up with Workmen's Compensation or your family doctor or the ER in 7 to 10 days for suture removal. Please continue to wash the area with soap andwater to prevent secondary infection and allow roughly 4 hours of air exposure today to help with healing Print Language: Chadian Disposition Disposition: Home, Self Care What to do if you have Problems For any increased pain, shortness of breath, bleeding, nausea or vomiting, chestpain, or any unexpected problems, contact your Primary Care Provider. Call [facility] ([phone]) or report to the closest Emergency Room. Call 911 if necessary. 01/13/25 0349 <Electronically signed by Eugenio Sharma DO> Cosigner Signature (if applicable): CC: Dr. Krishan Antonio MD ~ Signed [facility] Work Phone: Evaluation note* Diagnosis Scalp cyst- Primary Sebaceous cyst [facility] Scalp [facility]- Primary Sebaceous cyst [facility] Diagnosis Routine general medical examination at a health care facility documented in this encounter [facility] Work Phone: Evaluation noteNo assessment information available [facility] Work Phone: History of Present illness Narrative* scalp lesion right side incresed * vertex AK returned * LN2 to vertex 20 sec x 2 cycles to 2 mm lesion which froze to 8 mm lesion with >2 mm margin -[facility] Work Phone: Hospital Discharge instructionsAdditional Instructions Please follow-up with Workmen's Compensation or your family doctor or the ER in 7 to 10 days for suture removal. Please continue to wash the area with soap and water to prevent secondary infection and allow roughly 4 hours of air exposure today [facility]: Reason for referral (narrative)No reason for referral information availableWGlenbeigh [facility] Work Phone: History of Present Illness * Krysta Albert MD - 02/19/2017 6:09 PM EDT Dictation on: 02/19/2017 6:10 PM by: KRYSTA ALBERT [[id number]] in this encounter* Miracle Whitaker CNP - 06/17/2018 3:29 PM EST Associated Order(s): LG Jt Injection/Arthrocentesis: R subacromial bursa Post-Procedure Diagnose(s): Impingement syndrome of left shoulder LG Jt Injection/Arthrocentesis: R subacromial bursa Performed by: Miracle Whitaker CNP Authorized by: Miracle Whitaker CNP CPT 80219 - Large Joint Arthrocentesis: Consent given by: Patient Time out: Immediately prior to the procedure a time out was called Physician or proceduralist has discussed critical or nonroutine steps, procedure duration and anticipated blood loss: Yes Supporting Documentation: Indications: Pain Procedure Details: Location: Shoulder Site: R subacromial bursa Prep: patient was prepped and draped in usual sterile fashion Needle size: 22 G Approach: Posterior Medications: 1 mL dexamethasone 4 mg/mL, 1 mL triamcinolone acetonide 40 mg/mL Anesthetic used: Bupivacaine 0.5% and Lidocaine 1% Anesthetic amount (mL): 4 Patient tolerance: Patient tolerated the procedure well with no immediate complications * Miracle Whitaker CNP - 06/15/2018 8:44 PM EST Associated Order(s): LG Jt Injection/Arthrocentesis: L subacromial bursa Post-Procedure Diagnose(s): Impingement syndrome of left shoulder LG Jt Injection/Arthrocentesis: L subacromial bursa Performed by: Miracle Whitaker CNP Authorized by: Miracle Whitaker CNP CPT 25594 - Large Joint Arthrocentesis: Consent given by: Patient Time out: Immediately prior to the procedure a time out was called Physician or proceduralist has discussed critical or nonroutine steps, procedure duration and anticipated blood loss: Yes Supporting Documentation: Indications: Pain Procedure Details: Location: Shoulder Site: L subacromial bursa Prep: patient was prepped and draped in usual sterile fashion Needle size: 22 G Approach: Posterior Medications: 1 mL dexamethasone 4 mg/mL, 1 mL triamcinolone acetonide 40 mg/mL Anesthetic used: Lidocaine 1% and Bupivacaine 0.5% Anesthetic amount (mL): 4 Patient tolerance: Patient tolerated the procedure well with no immediate complications * Miracle Whitaker CNP - 06/15/2018 8:43 PM EST 06/15/18 Edilberto Levy Live 1960 No chief complaint on file. HISTORY of Present Illness: Edilberto Humphreys is a 57 y.o. year old male that presents today with No chief complaint on file. . Edilberto Humphreys has had injections in the past. Last injection to left shoulder was in February and they tolerated well. They have been treated w/ oral medications & injections. Patient denies new injury to the shoulders. The following portions of the patient's history were reviewed and updated as appropriate: allergies, current medications, past surgical history and problem list Assessment No documentation. Referred By: No ref. provider found PAST MEDICAL HISTORY The patient's Medications, Allergies, Past Surgical History, Medical History, Family History and Social History were reviewed and can be found in their online medical record, and I have reviewed thisinformation with Edilberto Humphreys at the time of their visit. They are significant for Past Medical History: Diagnosis Date Back pain left leg GERD (gastroesophageal reflux disease) PHYSICAL EXAM Ortho Exam Full range of motion throughout the left hand, wrist, elbow, and shoulder. 5/5 strength left shoulder rotator cuff. Tenderness to the anterior acromial hook and bicipital groove. Positive impingementsign. Right shoulder 4/5 strength in the supraspinatus and infraspinatus, 5/5 strength in the subscapularis. Additional Notes: IMAGING Notes: none new today. Reviewed from last visit. IMPRESSION And PLAN: Cortisone injection today. Will follow up in 3 months if effective. Call if no improvement in [address](R) 1. Impingement syndrome of left shoulder IMPINGEMENT SYNDROME OF LEFT SHOULDER REGION Miracle Whitaker CNP in this encounter* Miracle Whitaker CNP - 09/05/2018 1:00 PM EDT 09/05/18 Edilberto Humphreys 1960 Chief Complaint Patient presents with Left Shoulder - Pain, Follow-up HISTORY of Present Illness: Edilberto Humphreys is a 57 y.o. year old male that presents today with Pain and Follow-up of the Left Shoulder . Edilberto Humphreys has had injections in the past. Last injection to left shoulder was in June 2018 and then his family doctor injected again within this last 2 month period.His right shoulder tolerated well. He has not felt improvement after this last injection in left shoulder. His range of motion is full and equal with strength 5/5 bilateral shoulders, however he is unable to sleep because of the pain in his left shoulder. 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 The following portions of the patient's history were reviewed and updated as appropriate: allergies, current medications, past surgical history and problem list Assessment No documentation. Referred By: No ref. provider found PAST MEDICAL HISTORY The patient's Medications, Allergies, Past Surgical History, Medical History, Family History and Social History were reviewed and can be found in their online medical record, and I have reviewed thisinformation with Edilberto Humphreys at the time of their visit. They are significant for Past Medical History: Diagnosis Date Back pain left leg GERD (gastroesophageal reflux disease) PHYSICAL EXAM Ortho Exam Full range of motion throughout the left hand, wrist, elbow, and shoulder. 5/5 strength left shoulder rotator cuff. Tenderness to the anterior acromial hook and bicipital groove. Positive impingementsign. Right shoulder 4/5 strength in the supraspinatus and infraspinatus, 5/5 strength in the subscapularis. Additional Notes: New xrays are unremarkable other than high riding humeral head in glenohumeral joint IMAGING Notes: none new today. Reviewed from last visit. IMPRESSION And PLAN: Cortisone injection today. Will follow up in 3 months if effective. Call if no improvement in [address](R) 1. Impingement syndrome of both shoulders BILATERAL IMPINGEMENT SYNDROME OF SHOULDERS Miracle Whitaker CNP documented in this encounter* Sonia Hudson LPN - 09/05/2018 4:53 PM EDT MRI left shoulder approved by [facility] # [id number] from 09/05/18-10/20/18. Patient requested [facility]. documented in this encounter* Sonia Hudson LPN - 09/06/2018 11:35 AM EDT Patient notified appointment for MRI left shoulder is 5/ at 9 am arrive at 8:30 am . Go straight to radiology. Order and MRI PA sent to [facility] at [phone]. documented in this encounter* Krysta Albert MD - 09/23/2018 12:01 PM EDT Dictation on: 09/23/2018 12:03 PM by: KRYSTA ALBERT [[id number]] documented in this encounter Assessments Diagnosis Bursitis/tendonitis, shoulde r - Primary Unspecified disorders of bursae and tendons in shoulder region Tear of right rotator cuff, unspecified tear extent Diagnosis Impingement syndrome of left shoulder- Primary Diagnosis Impingement syndrome of both shoulders- Primary Diagnosis Impingement syndrome of left shoulder- Primary Complete tear of left rotator cuff Reason for Referral Status Reason Specialty Diagnoses / Procedures Referred By Contact Referred To Contact Pending Review Radiology Diagnoses Impingement syndrome of both shoulders Procedures MR Shoulder Left Without Contrast Mriacle Whitaker, [employer] [address] [place] [address] Advance Directives No Advanced Directives Records Found Advance Directive Response Recorded Date/ Time Do you have a Healthcare 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 No January 13, 2025 1:45am Summary Purpose Family History No Family History Records Found Mother Name Dates Details Family history of diabetes [place](V18.0, Z83.3) Status:Active Family history of hypertensi on(V17.49, Z82.49) Status:Active Father Name Dates Details No pertinent family history( V49.89, Z78.9) Status:Active Brother Name Dates Details Family history of S/P CABG ( coronary artery bypass graft)(V45.81, Z95.1) Status:Active Family history of gastroesop hageal reflux disease(V18.59, Z83.79) Status:Active Unknown Family Member Name Dates Details Family history of diabetes m ellitus: Mother(V18.0, Z83.3) Status:Active Family history of hypertensi on: Mother(V17.49, Z82.49) Status:Active No pertinent family history: Father(V49.89, Z78.9) Status:Active S/P CABG (coronary artery by pass graft): Brother(V45.81, Z95.1) Status:Active Family history of gastroesop hageal reflux disease: Brother(V18.59, Z83.79) Status:Active Unknown Family Member Name Dates Details Family history of diabetes m ellitus: Mother(V18.0, Z83.3) Status:Active Family history of hypertensi on: Mother(V17.49, Z82.49) Status:Active No pertinent family history: Father(V49.89, Z78.9) Status:Active S/P CABG (coronary artery by pass graft): Brother(V45.81, Z95.1) Status:Active Family history of gastroesop hageal reflux disease: Brother(V18.59, Z83.79) Status:Active Unknown Family Member Name Dates Details Family history of diabetes m ellitus: Mother(V18.0, Z83.3) Status:Active Family history of hypertensi on: Mother(V17.49, Z82.49) Status:Active No pertinent family history: Father(V49.89, Z78.9) Status:Active S/P CABG (coronary artery by pass graft): Brother(V45.81, Z95.1) Status:Active Family history of gastroesop hageal reflux disease: Brother(V18.59, Z83.79) Status:Active Unknown Family Member Name Dates Details Family history of diabetes m ellitus: Mother(V18.0, Z83.3) Status:Active Family history of hypertensi on: Mother(V17.49, Z82.49) Status:Active No pertinent family history: Father(V49.89, Z78.9) Status:Active S/P CABG (coronary artery by pass graft): Brother(V45.81, Z95.1) Status:Active Family history of gastroesop hageal reflux disease: Brother(V18.59, Z83.79) Status:Active Unknown Family Member Name Dates Details Family history of diabetes m ellitus: Mother(V18.0, Z83.3) Status:Active Family history of hypertensi on: Mother(V17.49, Z82.49) Status:Active No pertinent family history: Father(V49.89, Z78.9) Status:Active S/P CABG (coronary artery by pass graft): Brother(V45.81, Z95.1) Status:Active Family history of gastroesop hageal reflux disease: Brother(V18.59, Z83.79) Status:Active Chief Complaint LUMP ON NECK NOTICED 2 DAYS AGOCONSTANT RODRIGUES X 2 MOSPOT ON TOP OF HEAD X 1 MO, ALSO STILL HAVING HACHECK SPOT ON RIGHT SIDE OF HEAD X 2 WKS. NO LONGER TAKING VERAPAMIL. WAS NOT HELPING Chief Complaint and Reason for Visit Chief Complaint Admit Date LACERATION January 13, 2025 1:43am Additional Source Comments Reason for Visit (unrecogniz ed section and content) Reason Comments Pain Reason Comments Injections bilateral shoulder Reason Comments Pain injection didn't hel p from 06/17 and PCP inj. 3 weeks later. Still no relief. Pain Follow-up Reason Comments Follow-up Reason Comments Cyst scalp Specialty Diagnoses / Procedures Referred By Contnakia t Referred To Contact General Surgery Diagnoses Epidermoid cyst Stencel, Krishan Padilla MD [address] [place] [phone] [address] [facility] [address] [facility] Office Building, [address] [place] [address] Referral ID Status Reason Start Date Expiration Date V isits Requested Visits Authorized [id number] Closed Specialty Services Required/Diane ent's Best Interest 04/26/2022 04/26/2023 1 1 Reason Comments Procedure Left anglican scalp cy st Reason Comments Follow-up Annual Exam (unrecognized sect ion and content) No Status Records FoundNo Status Records FoundNo Status Records FoundNo Status Records FoundNo Status Records FoundNo Status Records FoundNo Status Records FoundNo Status Records Found INFORMATION SOURCE (unrecogn ized section and content) DATE CREATED AUTHOR 02/09/2019 [facility] DATE CREATED AUTHOR AUTHOR'S ORGANIZ ATION 11/18/2020 [facility] DATE CREATED AUTHOR AUTHOR'S ORGANIZ ATION 05/03/2022 [facility] DATE CREATED AUTHOR AUTHOR'S ORGANIZ ATION 05/03/2022 [employer] DATE CREATED AUTHOR AUTHOR'S ORGANIZ ATION 05/25/2022 [facility] DATE CREATED AUTHOR AUTHOR'S ORGANIZ ATION 08/03/2022 [facility] DATE CREATED AUTHOR AUTHOR'S ORGANIZ ATION 06/20/2024 [facility] DATE CREATED AUTHOR AUTHOR'S ORGANIZ ATION 01/13/2025 [facility] Care Teams (unrecognized sec tion and content) 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 Krishan Antonio MD Primary Care Provider Active Team Status: Inactive Member Role/Relationship Status Dates Dr. Eugenio Sharma DO Emergency Provider Active Start: January 13, 2025 End: January 13, 2025 Dr. Krishan Antonio MD Primary Care Provider Active Start: January 13, 2025 End: January 13, 2025 Goals (unrecognized section and content) Goals may be documented in a n alternate section FOR RECORDS PERTAINING TO PATIENTS WHO ARE OR HAVE BEEN ENROLLED IN A CHEMICAL DEPENDENCY/SUBSTANCEABUSE PROGRAM, SOME INFORMATION MAY BE OMITTED. This clinical summary was aggregated from multiple sources. Caution should be exercised in using it in the provision of clinical care. This summary normalizes information from multiple sources, and as a consequence, information in this document may materially change the coding, format and clinical context of patient data. In addition, data may be omitted in some cases. CLINICAL DECISIONS SHOULD BE BASED ON THE PRIMARY CLINICAL RECORDS. [facility] [employer] [facility]. provides no warranty or guarantee of the accuracy or completeness of information in this document.
--- NOTE | 2025-01-17 18:24 | EX.ED.DYSGE1 ---
HPI History of Present Illness Chief Complaint: Wound Check Narrative Narrative: Chief complaint and HPI: 64-year-old male who is right-hand dominant and has past medical history of GERD presents for evaluation of right third metacarpal phalangeal joint swelling and pain. Patient states he was seen in our emergency department on 01/13 after an injury at work. He obtained a laceration to the right middle finger. On chart review, he had an x-ray performed that was negative for fracture. His laceration was repaired and he is scheduled to follow-up with Worker's Compensation. Patient states since the incident he has developed swelling to the third metacarpal phalangeal joint with pain. He denies any fever, chills, shortness of breath, chest pain, Taco pain, nausea, vomiting, erythema, purulence, numbness/tingling. Review of systems: See HPI Medications: As listed on the chart Allergies: As listed on the chart PFSH: Per chart Vital signs: As listed on the chart. Reviewed. Physical exam: Gen: A&O x3, NAD Head: Normocephalic, atraumatic Eyes: No sclera icterus, conjunctiva clear ENT: Moist mucous membranes CV: Regular rate Resp: Nonlabored respirations Musc: Full range of motion of the right upper extremity including the right wrist/hand/fingers, he has mild swelling and ecchymosis to the third metacarpal phalangeal joint-mildly tender to palpation, no fusiform swelling/erythema/crepitus/lymphatic streaking, no signs of infection or tenosynovitis, compartments soft, normal capillary refill, radial pulse +2, sensation intact, laceration healing well with sutures without drainage/purulent/infection Skin: Warm, dry Neuro: Alert, oriented, grossly intact, sensation intact Psych: Cooperative, appropriate mood and affect PFS PFS Medical History (Updated 01/13/25 @ 03:[address] Eugenio Sharma, DO) GERD (gastroesophageal reflux disease) Home Medications ?Medication ?Instructions ?Recorded ?Last Taken ?Type pantoprazole 40 mg tablet,delayed 40 mg PO DAILY 01/17/25 Unknown History release Allergy/AdvReac Type Severity Reaction Status Date / Time No Known Allergies Allergy Verified 01/17/25 15:56 Surgical History (Updated 01/13/25 @ 01:46 by Mick Paez) History of back surgery Hx of shoulder surgery Social History Smoking Status: Current every day smoker tobacco type: cigarettes EXAM Physical Exam Const Vital Signs: 01/17/25 15:56 Temperature 97.3 F L Temperature Source Temporal Pulse Rate 70 Respiratory Rate 18 Blood Pressure 141/75 H Blood Pressure Mean 97 Pulse Ox 97 Oxygen Delivery Method Room Air MDM MDM MDM Narrative Medical decision making narrative: 64-year-old male who is right-hand dominant and has past medical history of GERD presents for evaluation of right third metacarpal phalangeal joint swelling and pain. Patient states he was seen in our emergency department on 01/13 after an injury at work. He obtained a laceration to the right middle finger. On chart review, he had an x-ray performed that was negative for fracture. His laceration was repaired and he is scheduled to follow-up with Worker's Compensation. Patient states since the incident he has developed swelling to the third metacarpal phalangeal joint with pain. See physical exam findings. Differential diagnosis includes but is not limited to contusion, fracture. No signs of infection. Will obtain repeat x-ray of the right hand. X-ray of the right hand was personally viewed interpreted by dc, ED physician. No fracture or dislocation. Soft tissue swelling visualized. Radiology in agreement. At this point in time, no clear etiology for patient's metacarpal-phalangeal joint swelling and pain. However low suspicion for infection. Suspect contusion given there is ecchymosis located in the area. Follow-up with Worker's Compensation. Recommended Tylenol, ibuprofen, ice, elevation. Patient confirmed understand the plan. Patient stable to discharge home. Return precautions explained. Impression: 1. Right hand contusion 2. Recent hand injury with finger laceration Radiography Diagnostic Testing: Clinical Impression(s) from Imaging Studies Hand X-Ray 01/17/25 18:25 IMPRESSION: No radiographic evidence of an acute osseous injury. - Mild soft tissue swelling. - Findings and recommendations as discussed above. Reading Location: [id number] Discharge Plan Triage Chief Complaint: Wound Check ED Provider: Ricky Chun Dx/Rx/DC Orders Prescriptions: No Action pantoprazole 40 mg tablet,delayed release (DR/EC) 40 mg PO DAILY Primary Care Provider: Mango Antonio Referrals: Mango Antonio MD [Primary Care Provider] - Print Language: Persian
--- NOTE | 2025-01-17 18:25 | RAD_ITS ---
PROCEDURE: HAND MIN 3 VIEWS 01/17/2025 REASON FOR EXAM: PAIN, RECENT INJURY TECHNIQUE: Procedure Code: MASTER Modality: DX Procedure: HAND MIN 3 VIEWS Laterality: Right COMPARISON: Right hand radiographs January 13, 2025. FINDINGS: Osseous: No acute fracture or malalignment of the right hand is seen. Mild marginal osteophytes are noted at the 1st, 2nd and 3rd metacarpophalangeal joints. There is mild interphalangeal joint space loss. No bone lesion or bone destruction is seen. Osteomyelitis however cannot be ruled out by this technique. In order to rule out osteomyelitis if suspected, consider MRI as clinically appropriate. Soft tissue: There is mild soft tissue swelling involving the distal 3rd digit. This may be due to injury or inflammation/infection. No visible soft tissue lucency to suggest gas. CT would be more sensitive in assessing for soft tissue gas. Soft tissue injury or infection is not reliably assessed by this technique. If there is suspicion for infection, consider MRI for more complete assessment. If there is suspicion for early septic joint, diagnostic aspiration and culture would also be helpful. RAD/Hand Min 3 Views IMPRESSION: No radiographic evidence of an acute osseous injury. - Mild soft tissue swelling. - Findings and recommendations as discussed above. Reading Location: [id number]
[2025-01-17 19:24] VITALS: BP 132/74; PULSE 65; RESP 18; TEMP 36.3; O2SAT 97
== END 2025-01-17 19:24 | disposition home or self-care (01) ==
PROVIDERS: Emergency Provider Surgery; PCP Family Medicine; Visit Provider Surgery
DX: S60.221A Contusion of right hand, initial encounter (principal); X58.XXXA Exposure to other specified factors, initial encounter; K21.9 Gastro-esophageal reflux disease without esophagitis; Z79.899 Other long term (current) drug therapy; F17.210 Nicotine dependence, cigarettes, uncomplicated; Z87.828 Personal history of other (healed) physical injury and trauma
CPT/HCPCS: 73130; 99282

== ENCOUNTER → 2025-01-23 | Outpatient (CLI) | payer SELFPAY | END | disposition home or self-care (01) | LOC: LABSPEC 10:25 | PROVIDERS: PCP Family Medicine; Referring Provider Physician Assistant Surgical; Visit Provider Physician Assistant Surgical | DX: T14.8XXA Other injury of unspecified body region, initial encounter (principal); L08.9 Local infection of the skin and subcutaneous tissue, unspecified | CPT/HCPCS: 87070; 87075; 87077; 87186; 87205 ==